=== PATIENT | female | born 1965 ===

== ENCOUNTER 2020-08-22 05:51 | Emergency (ER) | payer OTHER, SELFPAY ==
[2020-08-22 06:03] VITALS: BP 143/85; PULSE 79; RESP 18; TEMP 36.6; O2SAT 99; BMI 36.0
--- NOTE | 2020-08-22 07:52 | ED.ABDPAIN ---
HPI - Abdominal Pain General Chief Complaint: Abdominal Pain Stated Complaint: Abd pain Time Seen by Provider: 08/22/20 07:51 Source: patient Mode of arrival: ambulatory Limitations: no limitations History of Present Illness MD elicited complaint: abdominal pain Pertinent past history: diverticulitis Onset (ago): day(s) (10) Pain Consistency: constant Location: LLQ Severity: moderate Quality: stabbing Radiation: none Migration to: no migration Exacerbating factors: movement Relieving factors: nothing Context: history of similar episodes Associated symptoms: nausea and diarrhea Related Data Previous Rx's Medication Instructions Recorded hydrocodone-acetaminophen 1 tab PO Q6H PRN #15 tab 08/22/20 levofloxacin 500 mg PO DAILY 7 Days #7 tab 08/22/20 metronidazole [Flagyl] 500 mg PO BID 7 Days #14 tab 08/22/20 ondansetron 4 mg PO Q8H PRN #20 tab 08/22/20 Allergies Allergy/AdvReac Type Severity Reaction Status Date / Time No Known Allergies Allergy Unverified 05/04/20 14:59 Review of Systems Review of Systems Constitutional : No Weight loss, No Fever, No Chills ENT/Mouth : No sore throat, No Rhinorrhea Eyes: No Swelling, No Redness Cardiovascular : No Chest Pain, No SOB, NoEdema Respiratory : No Cough, No Sputum, No Wheezing Gastrointestinal : Positive Nausea, no Vomiting, positive Diarrhea, positive abdominal Pain, No Hematochezia, No Melena Genitourinary : No Dysuria, No Urinary Frequency, No Hematuria, No Urgency Musculoskeletal : No joint pain, No Myalgias, No Joint Swelling Skin : No Skin Lesions, No rash Neuro : No Weakness, No Numbness, No Dizziness, No Headache Psych : No Anxiety/Panic, No Depression Heme/Lymph: No Bruising, No Lymphadenopathy Endocrine : No Polyuria, No Polydipsia All other systems reviewed and are negative. Physical Exam Vital Signs: Vital Signs: Last Vital Signs Temp 97.8 F 08/22/20 06:03 Pulse 79 08/22/20 06:03 Resp 18 08/22/20 06:03 BP 143/85 H 08/22/20 06:03 Pulse Ox 99 08/22/20 06:03 Body Mass Index 36.0 Appearance: Alert. Oriented X3. No acute distress. Eyes: Pupils equal, round and reactive to light. ENT: Pharynx normal. Neck: Normal inspection. Neck supple. CVS: Normal heart rate and rhythm. Pulses normal. Respiratory: No respiratory distress. Breath sounds normal. Abdomen: Soft and mild LLQ ttp, no rebound or guarding Skin: Skin warm and dry. Normal skin color. Normal skin turgor. Extremities: No lower extremity edema. No calf ttp Neuro: Oriented X 3. No motor deficit. No sensory deficit. Course Course Course Narrative: aware of GB findings on CT scan but no RUQ pain neg Corbin's and no change in LFTs/bili and no WBC she can tolerate PO, she is not toxic, VS stable, will treat as outpatient MDM - Abdominal Pain MDM Narrative Medical decision making narrative: 55 yo female with hx of diverticulitis here with LLQ pain > 10 days ago about 1 month ago spoke to PCP on phone and started on PO flagyl, hx of IV antibiotics admit per her reports - at this time will need labs, CT scan for perforation/abscess, IVF, IV morphine for pain Lab Data Result diagrams: 08/22/20 08:17 08/22/20 08:17 Labs: Lab Results 08/22/20 08/22/20 08/22/20 Range/Units 08:17 08:17 08:17 WBC 9.6 (4.8-10.8) X10*3/uL RBC 3.82 L (4.20-5.50) X10*6/uL Hgb 12.0 (12.0-16.0) g/dl Hct 35.8 L (37-47) % MCV 93.7 (80-98) fL MCH 31.4 (27.0-33.0) pg MCHC 33.5 (31.0-35.0) g/dl RDW 12.3 (11.0-16.0) % Plt Count 296 (160-400) X10*3/uL MPV 10.0 (9.4-12.3) fL Immature Gran % (Auto) 0.2 (0.0-0.4) % Neut % (Auto) 72.8 (45-73) % Lymph % (Auto) 17.4 L (20-40) % [place] % (Auto) 7.8 (2-11) % Eos % (Auto) 1.6 (0-4) % Baso % (Auto) 0.2 (0-2) % Lymph # (Auto) 1.7 (1.2-4.9) X10*3/uL [place] # (Auto) 0.8 (0.1-1.2) X10*3/uL Eos # (Auto) 0.2 (0.0-0.4) X10*3/uL Baso # (Auto) 0.0 (0.0-0.2) X10*3/uL Abs Immat Gran (auto) 0.02 (0.00-0.03) X10*3/uL Absolute Neuts (auto) 7.0 (2.0-8.3) X10*3/uL Absolute Nucleated RBC 0.000 (0.0-0.012) X10*3/uL Nucleated RBC % (auto) 0.0 (0.0-0.2) /100WBC Hold Blue Top SEE NOTE Sodium 134 L (135-145) mmol/L Potassium 3.8 (3.3-5.1) mmol/l Chloride 102 (96-108) mmol/L Carbon Dioxide 26 (22-29) mmol/L Anion Gap 10 L (12-20) BUN 8 L (9-16) mg/dL Creatinine 0.74 (0.5-1.4) mg/dL Estim Creat Clear Calc 87.8 Estimated GFR > 60 Random Glucose 97 (60-115) mg/dL Calcium 8.5 (8.4-10.2) mg/dL Magnesium 2.0 (1.6-2.6) mg/dL Total Bilirubin 0.3 (0.0-1.0) mg/dL Direct Bilirubin 0.2 (0.0-0.5) mg/dL AST 12 (5-31) U/L ALT 14 (0-31) U/L Alkaline Phosphatase 64 (39-117) U/L Total Protein 7.1 (6.5-8.0) g/dL Albumin 4.0 (3.5-5.0) g/dL Lipase 16 (8-78) U/L Discharge Plan Discharge Clinical Impression: Diverticulitis Patient Disposition: Home, Self-Care Instructions: Diverticulitis (ED) Additional Instructions: return to ED for any worsening symptoms or concerns Prescriptions: New hydrocodone-acetaminophen 5-325 mg tablet 1 tab PO Q6H PRN (Reason: pain) Qty: 15 RF: 0 ondansetron 4 mg tablet,disintegrating 4 mg PO Q8H PRN (Reason: nausea and vomiting) Qty: 20 RF: 0 metronidazole [Flagyl] 500 mg tablet 500 mg PO BID 7 Days Qty: 14 RF: 0 levofloxacin 500 mg tablet 500 mg PO DAILY 7 Days Qty: 7 RF: 0 Referrals: Tonia Izaguirre STUDENT SU[employer] SERVICES DIRECTOR [Primary Care Provider] - 2 days (if not better) Print Language: [place] [facility] Past Medical History Attestation statement: The following information was validated with the patient. Medical History Acute diverticulitis Social History Social History Alcohol intake: never Smoking Status: Never smoker Use of substances other than those prescribed or required for medical reasons: No Advance Directives: No Advance Directives Information Provided: Yes
--- NOTE | 2020-08-22 07:59 | CT_ITS ---
EXAMINATION: CT ABDOMEN AND PELVIS WITH CONTRAST CLINICAL INFORMATION: Left lower quadrant pain COMPARISON: Abdominal ultrasound most recent June [address] of the abdomen and pelvis most recent August 1999 TECHNIQUE: Multidetector volumetric images were obtained from the superior aspect of the liver through the pubic symphysis following administration 85 mL of Omnipaque 350 intravenous contrast. Sagittal and coronal reformatted images were obtained on the technologist's workstation. Oral contrast: Yes This CT examination was performed using dose optimization techniques as appropriate, variously including the following: *Automated exposure control *Adjustment of mA and/or kV according to patient size (this includes techniques or standardized protocols for targeted exams where dose is matched to indication/reason for exam; i.e. extremities or head) *Use of iterative reconstruction technique DLP: 7 3 mGy-cm FINDINGS: LUNG BASES: There are small bilateral peripheral or subpleural pulmonary nodules lower lobes probably representing small subpleural lymph nodes. The lung bases are otherwise clear. LIVER, GALLBLADDER, AND BILIARY TREE: The liver is normal in size, shape, and attenuation. No focal hepatic lesion or biliary ductal dilatation is present. The gallbladder is normal in size. The gallbladder wall is upper normal in thickness measuring 3 mm. There is question of trace pericholecystic fluid.. No gallstones are appreciated by CT scan. PANCREAS: Unremarkable. SPLEEN: Unremarkable. ADRENAL GLANDS: Unremarkable. KIDNEYS AND URETERS: The kidneys are normal in size, shape, and attenuation. No hydronephrosis, hydroureter, or calculi seen. No perinephric stranding. BLADDER: Unremarkable. GASTROINTESTINAL TRACT: There is diverticulosis of the colon. There is wall thickening of the proximal sigmoid colon and stranding of the adjacent fat. Findings are suggestive of acute diverticulitis. No evidence of obstruction, perforation or abscess is seen. The Small and large bowel is otherwise unremarkable. The appendix is unremarkable. The stomach is unremarkable. ABDOMINAL WALL: No significant hernia is appreciated. There are postsurgical changes to the lower abdominal wall. It LYMPH NODES: Normal. VASCULAR: Unremarkable. PELVIC VISCERA: The left adnexa appears enlarged measuring approximately 4.3 x 6.3 x 6.5 cm in dimension. There are multiple clustered left adnexal cysts. Largest cyst measures approximately 3 cm. The right adnexa is unremarkable. There is a small low-attenuation lesion in the lower uterine segment/cervix probably representing nabothian cysts. There is a small amount of fluid in the pelvis. OSSEOUS STRUCTURES: There are degenerative changes of the spine. CT/CT abdomen pelvis w con IMPRESSION: Sigmoid diverticulitis. Upper normal thickness gallbladder wall and trace pericholecystic fluid. No gallstones are appreciated by CT scan. Appearance is questionable for cholecystitis. This could be better evaluated with ultrasound or HIDA scan if clinically indicated. Prominent left adnexa with multiple cysts, largest measuring 3 cm. This could be better evaluated with pelvic ultrasound. Small amount of fluid in the pelvis.
[2020-08-22] MEDS: 0.9 % Sodium Chloride 1,000 ML 999 ML IVCONT (08:22)
[2020-08-22] MEDS: Morphine Sulfate 4 MG/ML CARTRIDGE IVPUSH (08:22)
[2020-08-22] MEDS: ondansetron HCL 4 MG/2 ML VIAL IVPUSH (08:22)
[2020-08-22 08:24] LABS: Basophils Percent Auto 0.2 % (0-2); Eosinophils Absolute Auto 0.2 X10*3/uL (0.0-0.4); Eosinophils Percent Auto 1.6 % (0-4); Hematocrit 35.8 % (37-47); Imm Gran Abs Auto 0.02 X10*3/uL (0.00-0.03); Imm Gran Pct Auto 0.2 % (0.0-0.4); Lymphocytes Absolute Auto 1.7 X10*3/uL (1.2-4.9); Lymphocytes Percent Auto 17.4 % (20-40); MANUAL DIFF FLAG NO; Mean Corpuscular HGB Conc 33.5 g/dl (31.0-35.0); Mean Corpuscular Hemoglobin 31.4 pg (27.0-33.0); Mean Corpuscular Volume 93.7 fL (80-98); Monocytes Absolute Auto 0.8 X10*3/uL (0.1-1.2); Monocytes Percent Auto 7.8 % (2-11); Neutrophils Percent Auto 72.8 % (45-73); Platelet Count 296 X10*3/uL (160-400); Red Blood Count 3.82 X10*6/uL (4.20-5.50); Red Cell Distribution Width 12.3 % (11.0-16.0); White Blood Count 9.6 X10*3/uL (4.8-10.8)
[2020-08-22 08:50] LABS: Alanine Aminotransferase 14 U/L (0-31); Alkaline Phosphatase 64 U/L (39-117); Anion Gap 10 (12-20); Aspartate Amino Transferase 12 U/L (5-31); Bilirubin Direct 0.2 mg/dL (0.0-0.5); Bilirubin Total 0.3 mg/dL (0.0-1.0); Blood Urea Nitrogen 8 mg/dL (9-16); Calcium 8.5 mg/dL (8.4-10.2); Carbon Dioxide 26 mmol/L (22-29); Chloride 102 mmol/L (96-108); Creatinine Clr Calc Pharmacy 87.8; Estimated Glomerular Filt Rate > 60; Glucose Random 97 mg/dL (60-115); Lipase 16 U/L (8-78); Potassium 3.8 mmol/l (3.3-5.1); Sodium 134 mmol/L (135-145); Total Protein 7.1 g/dL (6.5-8.0)
[2020-08-22] MEDS: iohexoL 350 MG/ML 100 ML INFUS..BTL 85 ML IV (09:12)
[2020-08-22] MEDS: levoFLOXacin 500 MG TABLET PO (10:06)
[2020-08-22] MEDS: metroNIDAZOLE 500 MG TABLET PO (10:06)
== END 2020-08-22 10:11 | disposition home or self-care (01) ==
PROVIDERS: Emergency Provider Emergency Medicine; PCP Nurse Practitioner Family
DX: K57.32 Diverticulitis of large intestine without perforation or abscess without bleeding (principal)
CPT/HCPCS: 36415; 74177; 80048; 80076; 83690; 83735; 85025; 96361; 96374; 96375; 99284; J2270; J2405; Q9967

== ENCOUNTER 2020-09-21 13:07 | Outpatient (REF) | payer OTHER, SELFPAY | END 2020-09-21 13:08 | disposition home or self-care (01) | LOC: HO.LAB 13:07 | PROVIDERS: Visit Provider Internal Medicine | DX: Z20.822 Contact with and (suspected) exposure to COVID-19 (principal) | CPT/HCPCS: 36415; C9803; U0003; U0005 ==

== ENCOUNTER 2020-11-03 15:19 | Outpatient (REF) | payer OTHER, SELFPAY ==
[2020-11-03 18:41] LABS: TSH reflex Free T4 2.64 uIU/mL (0.32-4.0)
== END 2020-11-03 15:20 | disposition home or self-care (01) ==
LOC: HO.LAB 15:19
PROVIDERS: PCP Internal Medicine; Visit Provider Obstetrics & Gynecology
DX: N93.9 Abnormal uterine and vaginal bleeding, unspecified (principal); I10 Essential (primary) hypertension; Z88.5 Allergy status to narcotic agent
CPT/HCPCS: 36415; 84443

== ENCOUNTER 2020-11-09 16:12 | Outpatient (REF) | payer OTHER, SELFPAY ==
--- NOTE | ~2020-11-09 | US_ITS ---
EXAMINATION: US PELVIC COMPLETE CLINICAL INFORMATION: Abnormal uterine and vaginal bleeding. COMPARISON: None TECHNIQUE: Transabdominal and transvaginal imaging of pelvis is performed. FINDINGS: The uterus is anteverted and anteflexed measuring 9.1 cm in length, 3.9 cm in AP and 4.6 cm in transverse dimension. There is a small hypoechoic lesion in the anterior mid body of the uterus measuring 0.8 x 0.6 x 0.9 cm. Endometrial thickness is 1.1 cm. There are small anechoic nabothian cysts in the cervix. Right ovary measures 1.7 x 1.7 x 1.5 cm and volume 2.3 mL. Small dominant follicular cysts are seen. Left ovary measures 3.4 x 2.7 x 2.2 cm and volume 13.6 mL. There are 2 cysts seen. A 2.1 x 1.8 x 1.7 cyst with septation. An exophytic cyst measuring 1.5 x 1.5 x 1.9 cm. There is a left adnexal paraovarian cyst measuring 1.5 x 1.2 x 2.1 cm. No free fluid in cul-de-sac. US/US transvaginal IMPRESSION: Small uterine fibroid. There are small nabothian cysts in the cervix. Complex cyst with septation and exophytic simple cyst left ovary. In addition there is a left paraovarian cyst measuring 2.1 cm.
--- NOTE | ~2020-11-09 | US_ITS ---
EXAMINATION: US PELVIC COMPLETE CLINICAL INFORMATION: Abnormal uterine and vaginal bleeding. COMPARISON: None TECHNIQUE: Transabdominal and transvaginal imaging of pelvis is performed. FINDINGS: The uterus is anteverted and anteflexed measuring 9.1 cm in length, 3.9 cm in AP and 4.6 cm in transverse dimension. There is a small hypoechoic lesion in the anterior mid body of the uterus measuring 0.8 x 0.6 x 0.9 cm. Endometrial thickness is 1.1 cm. There are small anechoic nabothian cysts in the cervix. Right ovary measures 1.7 x 1.7 x 1.5 cm and volume 2.3 mL. Small dominant follicular cysts are seen. Left ovary measures 3.4 x 2.7 x 2.2 cm and volume 13.6 mL. There are 2 cysts seen. A 2.1 x 1.8 x 1.7 cyst with septation. An exophytic cyst measuring 1.5 x 1.5 x 1.9 cm. There is a left adnexal paraovarian cyst measuring 1.5 x 1.2 x 2.1 cm. No free fluid in cul-de-sac. US/US pelvic complete IMPRESSION: Small uterine fibroid. There are small nabothian cysts in the cervix. Complex cyst with septation and exophytic simple cyst left ovary. In addition there is a left paraovarian cyst measuring 2.1 cm.
== END 2020-11-09 16:13 | disposition home or self-care (01) ==
LOC: HO.US 16:12
PROVIDERS: PCP Internal Medicine; Visit Provider Obstetrics & Gynecology
DX: N93.9 Abnormal uterine and vaginal bleeding, unspecified (principal)
CPT/HCPCS: 76830; 76856

== ENCOUNTER 2020-11-17 09:34 | Outpatient (REF) | payer OTHER, SELFPAY ==
[2020-11-18 04:07] LABS: CT PCR NOT DETECTED (Not Detect.); NG PCR NOT DETECTED (Not Detect.)
[2020-11-18 05:32] LABS: CA-125 9 U/mL (<35)
[2020-11-22 02:31] LABS: HPV mRNA E6/E7 rflx Not Detected (Not Detected)
== END 2020-11-17 09:35 | disposition home or self-care (01) ==
LOC: HO.LAB 09:34
PROVIDERS: PCP Internal Medicine; Visit Provider Obstetrics & Gynecology
DX: Z12.4 Encounter for screening for malignant neoplasm of cervix (principal); Z11.3 Encounter for screening for infections with a predominantly sexual mode of transmission; Z11.51 Encounter for screening for human papillomavirus (HPV); N83.299 Other ovarian cyst, unspecified side; N93.9 Abnormal uterine and vaginal bleeding, unspecified
CPT/HCPCS: 36415; 58100; 86304; 87491; 87591; 87624; 88141; 88142; 88305

== ENCOUNTER → 2020-11-24 15:44 | Outpatient (BNVA) | payer OTHER, SELFPAY | PROVIDERS: PCP Internal Medicine; Visit Provider Obstetrics & Gynecology ==

== ENCOUNTER 2020-11-28 15:26 | Outpatient (REF) | payer OTHER, SELFPAY ==
--- NOTE | ~2020-11-28 | MM_ITS ---
EXAMINATION: MM SCREENING DIGITAL BREAST TOMOSYNTHESIS, BILATERAL CLINICAL INFORMATION: Screening. Asymptomatic. 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 The lifetime risk of breast cancer based on the Tyrer-Cuzick Model is 10%. COMPARISON: Mammography: 01/22/2017, 12/24/2016, 10/06/2015 TECHNIQUE: Digital breast tomosynthesis is performed in both the craniocaudal and mediolateral oblique views along with computer-aided detection (CAD). Synthesized 2D images are generated from the tomosynthesis. FINDINGS: There are scattered areas of fibroglandular density (ACR BI-RADS breast composition Category b). Breast tissue composition borders on heterogeneously dense. There is no interval mass or developing density. No architectural abnormality. Biopsy clip marker again noted right breast anterior upper outer quadrant. Again, there are scattered calcifications in both breasts. No significant changes. MM/MM tomosynthesis screening BI IMPRESSION: No significant changes from prior exams. ASSESSMENT: BI-RADS 2: Benign RECOMMENDATION: Routine annual mammography screening. This patient's information was entered into a reminder system with a target due date for their next mammogram.
== END 2020-11-28 15:27 | disposition home or self-care (01) ==
LOC: HO.MAMMO 15:26
PROVIDERS: PCP Internal Medicine; Visit Provider Internal Medicine
DX: Z12.31 Encounter for screening mammogram for malignant neoplasm of breast (principal)
CPT/HCPCS: 77063; 77067

== ENCOUNTER 2021-05-28 21:24 | Emergency (ER) | payer OTHER, SELFPAY ==
--- NOTE | ~2021-05-28 | CT_ITS ---
EXAMINATION: CT HEAD WITHOUT CONTRAST CLINICAL INFORMATION: Status post fall. COMPARISON: CT head dated from 01/28/2013. TECHNIQUE: Contiguous axial imaging was performed from the skull base to vertex without intravenous administration of contrast. This CT examination was performed using dose optimization techniques as appropriate, variously including the following: *Automated exposure control *Adjustment of mA and/or kV according to patient size (this includes techniques or standardized protocols for targeted exams where dose is matched to indication/reason for exam; i.e. extremities or head) *Use of iterative reconstruction technique DLP: 662 mGy-cm FINDINGS: There is no evidence of acute intracranial hemorrhage or territorial infarction. No abnormal mass effect or midline shift is seen. Donato to white matter differentiation is well preserved. No extra-axial fluid collections are identified. The ventricles are normal in size. There is no abnormal attenuation within the brain parenchyma. Small right occipital scalp hematoma. No acute osseous findings. The mastoid air cells and visualized portions of the paranasal sinuses are well aerated. CT/CT head/brain wo con IMPRESSION: Right occipital scalp hematoma without evidence of acute intracranial abnormalities.
[2021-05-28 21:33] VITALS: BP 144/81; PULSE 84; RESP 18; TEMP 36.8; O2SAT 98; BMI 34.9
--- NOTE | 2021-05-28 23:35 | ED.FALL ---
HPI - Fall General Chief Complaint: Fall Stated Complaint: Fall/Head inj Time Seen by Provider: 05/28/21 23:35 Source: patient Mode of arrival: ambulatory Limitations: no limitations History of Present Illness HPI Narrative: Patient fell backwards from ladder hit her head at the edge of stairs came with laceration and huge hematoma of the right occipital area no loss of conscious no seizures the patient behaving normal patient not on any anticoagulant Related Data Previous Rx's Medication Instructions Recorded hydrocodone 5 mg-acetaminophen 325 1 tab PO Q6H PRN #15 tab 08/22/20 mg tablet levofloxacin 500 mg tablet 500 mg PO DAILY 7 Days #7 tab 08/22/20 metronidazole 500 mg tablet 500 mg PO BID 7 Days #14 tab 08/22/20 (Flagyl) ondansetron 4 mg disintegrating 4 mg PO Q8H PRN #20 tab 08/22/20 tablet ibuprofen 600 mg tablet 600 mg PO Q6H PRN #20 tab 05/29/21 Allergies Allergy/AdvReac Type Severity Reaction Status Date / Time oxycodone AdvReac unknown Verified 11/24/20 15:58 Review of Systems Review of Systems: Yes all other systems are reviewed and are negative [facility] Past Medical History Medical History Acute diverticulitis Hypertension Social History Social History Alcohol intake: never Advance Directives: No Patient : No Gender identity: Female Physical Exam Vital Signs: Vital Signs: Last Vital Signs Temp 98.2 F 05/28/21 21:33 Pulse 89 05/29/21 00:03 Resp 16 05/29/21 00:03 BP 144/70 H 05/29/21 00:03 Pulse Ox 98 05/29/21 00:03 Body Mass Index 34.9 Const: General: comfortable Orientation/consciousness: patient oriented x3 HENMT: Head images: 1. 4 cm long superficial laceration Ears: hearing grossly normal bilaterally Face and sinus: Yes normal facial exam Eyes: General: appearance normal, both eyes and all related structures Neck: Neck: Yes full ROM, Yes supple and No tender Resp: Effort & Inspection: normal respiratory effort Auscultation: clear to auscultation bilaterally Cardio: Palpation: normal PMI Rate: regular rate Rhythm: regular rhythm Heart sounds: S1 normal heart sound present and S2 normal heart sound present GI: Inspection: Yes normal to inspection Palpation (GI): Soft to palpation : General: Yes no CVA tenderness Back/Spine/Pelvis: Back: no CVA tenderness Neuro: General: patient oriented x3, gait normal, moves all extremities and CN's II-XI intact bilaterally Procedures Laceration Laceration 1: Site: scalp Side (If applicable): right Size (cm): 4 Description: linear Depth: simple, single layer Skin layer closed with: other (#12 Lewis) Discharge Plan Discharge Clinical Impression: Closed head injury Qualifiers: Encounter type: initial encounter Qualified Code(s): S09.90XA - Unspecified injury of head, initial encounter Laceration of scalp Qualifiers: Encounter type: initial encounter Qualified Code(s): S01.01XA - Laceration without foreign body of scalp, initial encounter Patient Disposition: Home, Self-Care Instructions: Laceration (ED), Head Injury (ED) Additional Instructions: Apply ice Local care of lewis As advised staple removal in 7-10 days Ibuprofen for pain Prescriptions: New ibuprofen 600 mg tablet 600 mg PO Q6H PRN (Reason: pain) Qty: 20 RF: 0 No Action hydrocodone-acetaminophen 5-325 mg tablet 1 tab PO Q6H PRN (Reason: pain) Qty: 15 RF: 0 ondansetron 4 mg tablet,disintegrating 4 mg PO Q8H PRN (Reason: nausea and vomiting) Qty: 20 RF: 0 metronidazole [Flagyl] 500 mg tablet 500 mg PO BID 7 Days Qty: 14 RF: 0 levofloxacin 500 mg tablet 500 mg PO DAILY 7 Days Qty: 7 RF: 0 Stand Alone Forms: Work/School Release Interventions: ED Discharge Assessment Last Done: 05/29/21 01:07 Discharge Date/Time: 05/29/21 01:08
[2021-05-29 00:03] VITALS: BP 144/70; PULSE 89; RESP 16; O2SAT 98
[2021-05-29] MEDS: Ibuprofen 600 MG TABLET PO (00:58)
--- NOTE | 2021-05-29 00:59 | PC.NURSE ---
pt head lac lewis well aproximated. no complications. pt medicated for pain and then ready for discarge.
== END 2021-05-29 01:08 | disposition home or self-care (01) ==
PROVIDERS: Emergency Provider Internal Medicine; PCP Internal Medicine
DX: S01.01XA Laceration without foreign body of scalp, initial encounter (principal); I10 Essential (primary) hypertension; W11.XXXA Fall on and from ladder, initial encounter; Y93.9 Activity, unspecified; Y92.9 Unspecified place or not applicable; Y99.9 Unspecified external cause status
CPT/HCPCS: 12002; 70450; 99284

== ENCOUNTER 2021-06-05 09:00 | Emergency (ER) | payer OTHER, SELFPAY ==
[2021-06-05 09:46] VITALS: BP 174/81; PULSE 73; RESP 16; TEMP 36.1; O2SAT 99; BMI 34.9
--- NOTE | 2021-06-05 10:21 | ED_ITS ---
HPI - Wound/Laceration General Chief Complaint: Wound/Laceration Stated Complaint: staple removal Time Seen by Provider: 06/05/21 10:21 Source: patient Mode of arrival: ambulatory Limitations: no limitations History of Present Illness HPI narrative: 56-year-old female who hit the back of her head falling off a ladder 8 days ago. She had no loss of consciousness. Provider note of 05/28/21 states she had a large hematoma at that time, and 12 lewis were placed. Patient is not anticoagulated. Patient has not had any headache, vomiting, gait disturbance, or any other concussive symptoms since the initial laceration. Related Data Previous Rx's Medication Instructions Recorded hydrocodone 5 mg-acetaminophen 325 1 tab PO Q6H PRN #15 tab 08/22/20 mg tablet levofloxacin 500 mg tablet 500 mg PO DAILY 7 Days #7 tab 08/22/20 metronidazole 500 mg tablet 500 mg PO BID 7 Days #14 tab 08/22/20 (Flagyl) ondansetron 4 mg disintegrating 4 mg PO Q8H PRN #20 tab 08/22/20 tablet ibuprofen 600 mg tablet 600 mg PO Q6H PRN #20 tab 05/29/21 Allergies Allergy/AdvReac Type Severity Reaction Status Date / Time oxycodone AdvReac unknown Verified 11/24/20 15:58 Review of Systems Constitutional: Constitutional: Denies body ache(s), Denies chills, Denies fatigue, Denies fever(s), Denies headache(s), Denies malaise and Denies weakness Eyes: Eyes: Denies diplopia ENT: Denies vertigo, Denies dizziness, Denies otalgia, Denies headache(s), Denies mouth pain, Denies post nasal drip, Denies sinus pain, Denies sinus pressure, Denies sore throat and Denies throat swelling Cardiovascular: Cardiovascular: Denies chest pain, Denies syncope, Denies leg edema, Denies lightheadedness, Denies Loss of Consciousness, Denies palpitations and Denies dyspnea Respiratory: Respiratory: Denies chest congestion, Denies cough and Denies dyspnea Gastrointestinal: Gastrointestinal: Reports abdominal pain, Denies hematochezia, Denies constipation, Denies diarrhea and Denies vomiting Musculoskeletal: Musculoskeletal: Reports no additional musculoskeletal complaints Integumentary/Breasts: Comments: Total lewis to right-side of occiput Neurologic: Denies confusion, Denies vertigo, Denies dizziness, Denies syncop e, Denies headache(s) and Denies weakness Psychiatric: Psychiatric: Denies anxiety, Denies confusion and Denies depression Endocrine: Endocrine: Denies fatigue and Denies palpitations Allergic/Immunologic: Allergic/Immunologic: Denies throat swelling PMFSH Past Medical History Medical History Acute diverticulitis Hypertension Social History Social History Alcohol intake: never Advance Directives: No Advance Directives Information Provided: No Patient : No Gender identity: Female Physical Exam Vital Signs: Vital Signs: Last Vital Signs Temp 96.9 F 06/05/21 09:46 Pulse 73 06/05/21 09:46 Resp 16 06/05/21 09:46 BP 174/81 H 06/05/21 09:46 Pulse Ox 99 06/05/21 09:46 Body Mass Index 34.9 Const: General: No confusion Nutritional Appearance: well nourished Orientation/consciousness: No confusion Limitations: no limitations HENMT: Head: Yes normal to inspection, Yes normocephalic and Yes atraumatic Ears: hearing grossly normal bilaterally, external ears normal, TM's normal bilaterally and EAC's normal General nose exam: Normal external nose present Face and sinus: Yes normal facial exam and Yes sinuses nontender Mouth: Normal oral and palatal mucosa present Throat: Yes posterior oropharynx normal Eyes: Conjunctivae: conjunctivae normal Pupils: Equal, round and reactive pupils present EOM: EOMs intact bilaterally Neck: Neck: Yes full ROM, Yes no lymphadenopathy and Yes supple Resp: Effort & Inspection: normal respiratory effort and able to speak in complete sentences Auscultation: clear to auscultation bilaterally, no crackles, no rales, no rhonchi and no wheezes Cardio: Rate: regular rate Rhythm: regular rhythm Heart sounds: S1 normal heart sound present and S2 normal heart sound present GI: Inspection: Yes normal to inspection Palpation (GI): Soft to palpation, nontender, no guarding and not rigid Percussion: Yes normal to percussion Auscultation: normal bowel sounds Skin: Other: Or 12 lewis in nicely healing laceration over right side of patient's scalp. No redness, swelling, warmth. Neuro: General: No confusion Cranial nerves: Yes Equal, round and reactive pupils present Extrem: General: Yes normal to inspection and Yes full ROM Psych: Appearance: grossly normal Affect: normal affect Attitude: cooperative Thought process: Normal thought process present Course Course Course Narrative: Removed 12 lewis from patient's healing scalp laceration. Scalp laceration looks great, no redness swelling or warmth. Patient tolerated procedure well, no follow-up required Discharge Plan Discharge Clinical Impression: Removal of lewis Patient Disposition: Home, Self-Care Additional Instructions: You may wash your hair with shampoo. Your laceration looks very good, it is not infected. If redness, swelling, pain develops, please return to be seen. I do not think this will happen. Prescriptions: No Action hydrocodone-acetaminophen 5-325 mg tablet 1 tab PO Q6H PRN (Reason: pain) Qty: 15 RF: 0 ondansetron 4 mg tablet,disintegrating 4 mg PO Q8H PRN (Reason: nausea and vomiting) Qty: 20 RF: 0 metronidazole [Flagyl] 500 mg tablet 500 mg PO BID 7 Days Qty: 14 RF: 0 levofloxacin 500 mg tablet 500 mg PO DAILY 7 Days Qty: 7 RF: 0 ibuprofen 600 mg tablet 600 mg PO Q6H PRN (Reason: pain) Qty: 20 RF: 0 Stand Alone Forms: Work/School Release Interventions: ED Discharge Assessment Last Done: 06/05/21 10:50 Discharge Date/Time: 06/05/21 10:50
== END 2021-06-05 10:50 | disposition home or self-care (01) ==
PROVIDERS: Emergency Provider Emergency Medicine; PCP Internal Medicine
DX: S01.01XD Laceration without foreign body of scalp, subsequent encounter (principal); W11.XXXD Fall on and from ladder, subsequent encounter; I10 Essential (primary) hypertension
CPT/HCPCS: 99283

== ENCOUNTER 2022-05-22 16:34 | Outpatient (REF) | payer OTHER, SELFPAY ==
[2022-05-23 02:52] LABS: CT PCR NOT DETECTED (Not Detect.); NG PCR NOT DETECTED (Not Detect.)
[2022-05-23 13:27] LABS: BV Int Neg Control Negative (Negative); BV Int Pos Control Positive (Positive)
[2022-05-26 14:03] LABS: HPV mRNA E6/E7 rflx Not Detected (Not Detected)
== END 2022-05-22 16:35 | disposition home or self-care (01) ==
LOC: HO.LNP 16:34
PROVIDERS: Visit Provider Advanced Practice Midwife
DX: Z01.419 Encounter for gynecological examination (general) (routine) without abnormal findings (principal); Z11.51 Encounter for screening for human papillomavirus (HPV); R10.2 Pelvic and perineal pain; N95.0 Postmenopausal bleeding
CPT/HCPCS: 87480; 87491; 87510; 87591; 87624; 87660; 88142

== ENCOUNTER 2022-07-10 11:43 | Outpatient (REF) | payer OTHER, SELFPAY ==
--- NOTE | ~2022-07-10 | US_ITS ---
EXAMINATION: US PELVIS CLINICAL INFORMATION: Postmenopausal bleeding COMPARISON: Previous pelvic ultrasound most recent October 2020 TECHNIQUE: Ultrasound of the pelvis is performed using both transabdominal and transvaginal transducers along with Doppler. Transvaginal imaging is performed due to inadequate visualization transabdominally. FINDINGS: Exam is limited due to patient body habitus. The uterus appears anteverted and retroflexed and measures 7.3 x 4.2 x 5 cm in dimension. There is a 1 x 0.7 x 0.8 cm hypoechoic lesion in the right uterine body probably representing a small fibroid. The endometrium is abnormally thickened for a postmenopausal patient measuring 0.8 cm. There are nabothian cysts in the cervix. The right ovary is normal-appearing and measures 2.3 x 1.4 x 1.5 cm. Left ovary measures 3.1 x 2.4 x 1.8 cm. There are 2 left ovarian cysts measuring 1.7 x 1.7 x 1.3 cm and 1.2 x 1 x 1.3 cm. These are probably similar to previous exam. There is no fluid in the pelvis. US/US pelvic and transvaginal IMPRESSION: Limited exam. Abnormally thickened endometrium for a postmenopausal patient measuring 8 mm. 2 left ovarian cysts probably similar to previous exam.
[2022-07-10 14:38] LABS: Thyroid Stimulating Hormone 1.85 uIU/mL (0.32-4.0)
== END 2022-07-10 11:44 | disposition home or self-care (01) ==
LOC: HO.US 11:43
PROVIDERS: PCP Internal Medicine; Visit Provider Advanced Practice Midwife
DX: N95.0 Postmenopausal bleeding (principal)
CPT/HCPCS: 36415; 76830; 76856; 83001; 84443

== ENCOUNTER → 2022-08-13 11:42 | Outpatient (BNVA) | payer OTHER, SELFPAY | PROVIDERS: PCP Internal Medicine; Visit Provider Advanced Practice Midwife | DX: Z71.2 Person consulting for explanation of examination or test findings (principal); N95.0 Postmenopausal bleeding | CPT/HCPCS: 58100 ==

== ENCOUNTER 2022-11-25 16:46 | Outpatient (REF) | payer OTHER, SELFPAY ==
[2022-11-25 17:14] LABS: MANUAL DIFF FLAG NO
[2022-11-25 17:55] LABS: Basophils Percent Auto 0.5 % (0-2); Eosinophils Absolute Auto 0.2 X10*3/uL (0.0-0.4); Eosinophils Percent Auto 3.4 % (0-4); Hematocrit 37.8 % (37.0-47.0); Hemoglobin 12.8 g/dl (12.0-16.0); Imm Gran Abs Auto 0.01 X10*3/uL (0.00-0.03); Imm Gran Pct Auto 0.2 % (0.0-0.4); Lymphocytes Absolute Auto 1.9 X10*3/uL (1.2-4.9); Lymphocytes Percent Auto 28.5 % (20-40); Mean Corpuscular HGB Conc 33.9 g/dl (31.0-35.0); Mean Corpuscular Hemoglobin 31.4 pg (27.0-33.0); Mean Corpuscular Volume 92.9 fL (80.0-98.0); Mean Platelet Volume 10.5 fL (9.4-12.3); Monocytes Absolute Auto 0.6 X10*3/uL (0.1-1.2); Monocytes Percent Auto 9.8 % (2-11); Neutrophils Absolute Auto 3.8 x10*3/uL (2.0-8.3); Neutrophils Percent Auto 57.6 % (45-73); Platelet Count 303 X10*3/uL (160-400); Red Blood Count 4.07 X10*6/uL (4.20-5.50); Red Cell Distribution Width 12.6 % (11.0-16.0); White Blood Count 6.6 X10*3/uL (4.8-10.8)
[2022-11-25 18:07] LABS: Blood Urea Nitrogen 9 mg/dL (9-16); C Reactive Protein 9.45 mg/dL (< or = 0.50); Estimated Glomerular Filt Rate > 60
== END 2022-11-25 16:47 | disposition home or self-care (01) ==
LOC: HO.LAB 16:46
PROVIDERS: Absent Provider Internal Medicine; PCP Internal Medicine; Visit Provider Emergency Medicine
DX: R10.32 Left lower quadrant pain (principal); Z87.19 Personal history of other diseases of the digestive system
CPT/HCPCS: 36415; 82565; 84520; 85025; 86140

== ENCOUNTER 2022-11-27 06:30 | Outpatient (REF) | payer OTHER, SELFPAY ==
--- NOTE | ~2022-11-27 | CT_ITS ---
EXAMINATION: CT ABDOMEN AND PELVIS WITH CONTRAST CLINICAL INFORMATION: Left lower quadrant pain history of diverticulitis COMPARISON: August 22, 2020 TECHNIQUE: Multidetector volumetric images were obtained from the superior aspect of the liver through the pubic symphysis following administration 85 mL of Omnipaque 350 intravenous contrast. Sagittal and coronal reformatted images were obtained on the technologist's workstation. Oral contrast: No This CT examination was performed using dose optimization techniques as appropriate, variously including the following: *Automated exposure control *Adjustment of mA and/or kV according to patient size (this includes techniques or standardized protocols for targeted exams where dose is matched to indication/reason for exam; i.e. extremities or head) *Use of iterative reconstruction technique DLP: 506 mGy-cm FINDINGS: LUNG BASES: The visualized lung bases are unremarkable. No pleural or pericardial effusion. LIVER, GALLBLADDER, AND BILIARY TREE: The liver is enlarged measuring approximately 21 cm in vertical length. There also appears to be some diminished density of liver parenchyma consistent with fatty infiltration. No focal hepatic lesion or biliary ductal dilatation is present. The gallbladder is unremarkable with no evidence of radiopaque gallstones, gallbladder wall thickening, or obvious pericholecystic inflammatory changes. PANCREAS: Unremarkable. No abnormal mass or peripancreatic inflammatory change. SPLEEN: Unremarkable. ADRENAL GLANDS: Unremarkable. KIDNEYS AND URETERS: The kidneys are normal in size, shape, and attenuation. No hydronephrosis, hydroureter, or calculi seen. No perinephric stranding. BLADDER: Decompressed GASTROINTESTINAL TRACT: No dilated loops of large or small bowel are evident. No free air or free fluid is seen. There is some bowel wall thickening and diverticulosis present within the sigmoid colon as well as some pericolonic fat stranding without definite abscess formation. Above finding consistent with acute diverticulitis. The appendix is visualized and appears unremarkable. ABDOMINAL WALL: No significant hernia is appreciated. LYMPH NODES: No lymphadenopathy appreciated. VASCULAR: Unremarkable. PELVIC VISCERA: Unremarkable. OSSEOUS STRUCTURES: Unremarkable. CT/CT abdomen pelvis w IV con IMPRESSION: Acute sigmoid diverticulitis without drainable abscess. Fleischner guidelines were followed.
[2022-11-27] MEDS: iohexoL 350 MG/ML 100 ML INFUS..BTL 85 ML IV (09:37)
[2022-11-27] MEDS: Barium Sulfate Oral (Vanilla) 450 ML ORAL.SUSP 900 ML PO (09:38)
== END 2022-11-27 06:31 | disposition home or self-care (01) ==
LOC: HO.CT 06:30
PROVIDERS: PCP Emergency Medicine; Visit Provider Emergency Medicine
DX: R10.32 Left lower quadrant pain (principal); Z87.19 Personal history of other diseases of the digestive system
CPT/HCPCS: 74177; Q9967

== ENCOUNTER 2022-12-29 19:52 | Emergency (ER) | payer OTHER, SELFPAY ==
--- NOTE | ~2022-12-29 | XR_ITS ---
EXAMINATION: XR CHEST CLINICAL INFORMATION: Shortness of breath COMPARISON: None available. TECHNIQUE: Frontal view of the chest was obtained. FINDINGS: Normal symmetric lung volumes. No parenchymal consolidation. No pleural effusion. No pneumothorax. Cardiomediastinal silhouette and pulmonary vascularity are within normal limits. No acute osseous abnormalities. XR/XR chest 1V IMPRESSION: No acute findings.
--- NOTE | ~2022-12-29 | CT_ITS ---
EXAMINATION: CT ANGIOGRAM OF THE CHEST WITH AND WITHOUT CONTRAST (CT PULMONARY ANGIOGRAM FOR PE) CLINICAL INFORMATION: Reason for Exam acute sob COMPARISON: Chest x-ray from the same day TECHNIQUE: Prior to contrast administration, noncontrast localization images were obtained. Subsequently, multidetector volumetric imaging was performed from the thoracic inlet to below the diaphragms following the administration of 80 mL Omnipaque 350 intravenous contrast. No contrast reaction reported Sagittal, coronal, and MIP oblique sagittal reformatted images were obtained on the CT workstation, uploaded to PACS, and reviewed. This CT examination was performed using dose optimization techniques as appropriate, variously including the following: *Automated exposure control *Adjustment of mA and/or kV according to patient size (this includes techniques or standardized protocols for targeted exams where dose is matched to indication/reason for exam; i.e. extremities or head) *Use of iterative reconstruction technique Total exam dose-length product 334 mGy-cm FINDINGS: QUALITY OF STUDY/CONTRAST BOLUS: Satisfactory. PULMONARY ARTERIES: No pulmonary emboli. THORACIC AORTA: No aneurysm. LUNG: There is focal curvilinear opacity adjacent to a focus of pericardial fat in the anterior left upper lobe as seen on image 212/501. No additional focal consolidation is seen bilaterally. PLEURA: No pleural effusion or pneumothorax. MEDIASTINUM: The visualized thyroid gland is unremarkable. There are subcentimeter mediastinal lymph nodes within the range of normal variation. Cardiac size is within normal limits; no pericardial effusion. CORONARY ARTERY CALCIFICATION: None visualized on this study. CHEST WALL/AXILLA: No axillary or internal mammary lymphadenopathy. OSSEOUS STRUCTURES: Multilevel endplate osteophytes noted in the spine. UPPER ABDOMEN: Unremarkable. No reflux of contrast into the hepatic veins to suggest elevated right heart pressures. CT/CT angio chest PE protocol IMPRESSION: 1. No pulmonary embolus identified. 2. Focal curvilinear opacity in the anterior left upper lobe, favoring atelectasis and less likely an irregularly-shaped nodule. However, without prior studies for comparison, follow-up CT in 3-6 months would be helpful to assess stability. VTE: negative.
[2022-12-29 20:12] VITALS: BP 144/85; PULSE 108; RESP 22; TEMP 36.8; O2SAT 99; BMI 34.8
--- NOTE | 2022-12-29 20:43 | ED.GENADULT ---
HPI - General Adult General Chief complaint: Dyspnea Stated complaint: sob/n Time Seen by Provider: 12/29/22 20:31 Source: patient Mode of arrival: ambulatory Limitations: no limitations History of Present Illness HPI narrative: Patient with History of diverticulitis treated with antibiotics on 11/27/2022 comes in with sudden onset of shortness of breath at 14:00 with nausea resolved and came back again just prior to arrival patient does have slight anxiety but does not feel very anxious never had similar episode in the past felt nauseated no vomiting no diarrhea no blood in the stool no significant abdominal pain no fever or chills Related Data Home Medications Medication Instructions Recorded Confirmed lisinopril 10 mg tablet 10 mg PO DAILY 05/22/22 Previous Rx's Medication Instructions Recorded ibuprofen 600 mg tablet 600 mg PO Q6H PRN pain #20 tabs 05/29/21 Allergies Allergy/AdvReac Type Severity Reaction Status Date / Time oxycodone AdvReac unknown Verified 08/13/22 12:16 Review of Systems Review of Systems: Yes all other systems are reviewed and are negative PMFSH Past Medical History Medical History Acute diverticulitis History of abnormal cervical Papanicolaou smear Hypertension Surgical History Hx of section Family History Family History Family/Other History of breast cancer Paternal Aunt Brain cancer Father Prostate cancer Family/Other Colon cancer Social History Social History Alcohol intake: never Patient Tobacco Use Status: Never used Tobacco Smoked in Last 30 Days: No Use of substances other than those prescribed or required for medical reasons: No Advance Directives: No Advance Directives Information Provided: Yes Gender identity: Female Physical Exam ED Vital Signs: Vital Signs - 24 hr 12/29/22 20:12 12/29/22 21:12 12/29/22 22:21 Temperature 98.3 F 98.1 F 98.4 F Pulse Rate 108 H 102 H 98 Respiratory Rate 22 H 18 16 Blood Pressure 144/85 H 148/82 H 121/68 Pulse Oximetry 99 99 98 Oxygen Delivery Method Room Air Room Air Room Air BMI result Body Mass Index 34.8 Appearance: Alert. Oriented X3. No acute distress. Anxious Eyes: PERRLA, No Nystagmus ENT: Pharynx normal. Oral Mucosa moist Neck: Normal inspection. Neck supple. CVS: Normal heart rate and rhythm. Pulses normal. Respiratory: No respiratory distress. Equal air entry bilateral, no wheezing/rales/rhonchi Abdomen: Soft and nontender. Bowel sounds are present, no mass palpable, no CVA tenderness Skin: Skin warm and dry. Normal skin color. Normal skin turgor. Extremities: No lower extremity edema. No calf tenderness Neuro: Oriented X 3. No motor deficit. Medications Administered Discontinued Medications Generic Name Dose Route Start Last Admin Trade Name Freq PRN Reason Stop Dose Admin Sodium Chloride 1,000 mls @ 999 mls/hr 12/29/22 20:48 12/29/22 22:15 Ns IV 12/29/22 21:48 Infused .Q1H1M ONE Infusion Iohexol 100 ml 12/29/22 22:42 12/29/22 22:42 Iohexol 350 Mg/Ml 100 Ml Infus..Btl IV 12/29/22 22:43 85 ml ONCE ONE Administration Medical Decision Making Medical Decision Making [facility] Narrative: Patient on specific complaints negative troponin negative EKG changes CTA negative for PE patient seems to be anxious when she arrived likely the anxiety as a cause of shortness of breath and discomfort patient feels better at this time discharge patient home Lab Data [facility] Lab Attestation statement: I reviewed the patient's lab results. 12/29/22 20:54 12/29/22 20:54 Labs: Lab Results 12/29/22 12/29/22 12/29/22 Range/Units 20:54 20:54 20:54 WBC 8.8 (4.8-10.8) X10*3/uL RBC 4.13 L (4.20-5.50) X10*6/uL Hgb 12.9 (12.0-16.0) g/dl Hct 37.8 (37.0-47.0) % MCV 91.5 (80.0-98.0) fL MCH 31.2 (27.0-33.0) pg MCHC 34.1 (31.0-35.0) g/dl RDW 12.4 (11.0-16.0) % Plt Count 256 (160-400) X10*3/uL MPV 10.1 (9.4-12.3) fL Immature Gran % (Auto) 0.3 (0.0-0.4) % Neut % (Auto) 77.7 H (45-73) % Lymph % (Auto) 13.4 L (20-40) % [place] % (Auto) 7.4 (2-11) % Eos % (Auto) 1.0 (0-4) % Baso % (Auto) 0.2 (0-2) % Lymph # (Auto) 1.2 (1.2-4.9) X10*3/uL [place] # (Auto) 0.7 (0.1-1.2) X10*3/uL Eos # (Auto) 0.1 (0.0-0.4) X10*3/uL Baso # (Auto) 0.0 (0.0-0.2) X10*3/uL Abs Immat Gran (auto) 0.03 (0.00-0.03) X10*3/uL Absolute Neuts (auto) 6.8 (2.0-8.3) x10*3/uL Absolute Nucleated RBC 0.000 (0.0-0.012) X10*3/uL Nucleated RBC % (auto) 0.0 (0.0-0.2) /100WBC D-Dimer High Sensitivty NG/ML Sodium 140 (135-145) mmol/L Potassium 3.8 (3.3-5.1) mmol/L Chloride 106 (96-108) mmol/L Carbon Dioxide 25 (22-29) mmol/L Anion Gap 13 (12-20) BUN 9 (9-16) mg/dL Creatinine 0.78 (0.5-1.4) mg/dL Estim Creat Clear Calc 79.8 Estimated GFR > 60 Random Glucose 126 H (60-115) mg/dL Lactic Acid 1.0 (0.5-2.0) mmol/L Calcium 9.4 D (8.4-10.2) mg/dL Total Bilirubin 0.4 (0.0-1.0) mg/dL Direct Bilirubin 0.1 (0.0-0.5) mg/dL AST 17 (5-31) U/L ALT 15 (0-31) U/L Alkaline Phosphatase 80 (39-117) U/L Troponin I High Sens (<3.5-17.0) ng/L Total Protein 7.6 (6.5-8.0) g/dL Albumin 4.4 (3.5-5.0) g/dL Lipase 17 (8-78) U/L Urine Color Urine Appearance Urine pH (5.0-9.0) Ur Specific Alpine (1.005-1.025) Urine Protein (Neg-Trace) mg/dL Urine Glucose (UA) (Negative) mg/dL Urine Ketones (Negative) mg/dL Urine Blood (Negative) Urine Nitrite (Negative) Ur Leukocyte Esterase (Negative) 12/29/22 12/29/22 12/29/22 Range/Units 21:02 21:06 22:26 WBC (4.8-10.8) X10*3/uL RBC (4.20-5.50) X10*6/uL Hgb (12.0-16.0) g/dl Hct (37.0-47.0) % MCV (80.0-98.0) fL MCH (27.0-33.0) pg MCHC (31.0-35.0) g/dl RDW (11.0-16.0) % Plt Count (160-400) X10*3/uL MPV (9.4-12.3) fL Immature Gran % (Auto) (0.0-0.4) % Neut % (Auto) (45-73) % Lymph % (Auto) (20-40) % [place]enden % (Auto) (2-11) % Eos % (Auto) (0-4) % Baso % (Auto) (0-2) % Lymph # (Auto) (1.2-4.9) X10*3/uL [place] # (Auto) (0.1-1.2) X10*3/uL Eos # (Auto) (0.0-0.4) X10*3/uL Baso # (Auto) (0.0-0.2) X10*3/uL Abs Immat Gran (auto) (0.00-0.03) X10*3/uL Absolute Neuts (auto) (2.0-8.3) x10*3/uL Absolute Nucleated RBC (0.0-0.012) X10*3/uL Nucleated RBC % (auto) (0.0-0.2) /100WBC D-Dimer High Sensitivty 353 NG/ML Sodium (135-145) mmol/L Potassium (3.3-5.1) mmol/L Chloride (96-108) mmol/L Carbon Dioxide (22-29) mmol/L Anion Gap (12-20) BUN (9-16) mg/dL Creatinine (0.5-1.4) mg/dL Estim Creat Clear Calc Estimated GFR Random Glucose (60-115) mg/dL Lactic Acid (0.5-2.0) mmol/L Calcium (8.4-10.2) mg/dL Total Bilirubin (0.0-1.0) mg/dL Direct Bilirubin (0.0-0.5) mg/dL AST (5-31) U/L ALT (0-31) U/L Alkaline Phosphatase (39-117) U/L Troponin I High Sens < 2.7 (<3.5-17.0) ng/L Total Protein (6.5-8.0) g/dL Albumin (3.5-5.0) g/dL Lipase (8-78) U/L Urine Color Yellow Urine Appearance Clear Urine pH 7.0 (5.0-9.0) Ur Specific Alpine <= 1.005 (1.005-1.025) Urine Protein Negative (Neg-Trace) mg/dL Urine Glucose (UA) Negative (Negative) mg/dL Urine Ketones Negative (Negative) mg/dL Urine Blood Negative (Negative) Urine Nitrite Negative (Negative) Ur Leukocyte Esterase Negative (Negative) Independent Interpretation I performed an independent interpretation of an: EKG Interpretation: Normal sinus rhythm heart rate 97 beats per minute normal intervals normal axis no acute ST-T no acute ischemia Discharge Plan Discharge Clinical Impression: Anxiety Patient Disposition: Home, Self-Care Instructions: Anxiety (ED) Additional Instructions: Your symptoms likely from anxiety CT scan of the chest negative for blood clot and there is is no findings of heart attack Rest at home and follow with PCP Es probable que eli s?ntomas se deban a la ansiedad. Tomograf?a computarizada del t?rax negativa para co?gulo de nanette y no hay hallazgos de ataque card?aco Descansar en casa y seguir con PCP Prescriptions: No Action ibuprofen 600 mg tablet 600 mg PO Q6H PRN (Reason: pain) Qty: 20 0RF lisinopril 10 mg tablet 10 mg PO DAILY Interventions: ED Discharge Assessment Last Done: 12/29/22 23:33 Discharge Date/Time: 12/29/22 23:43 Print Language: Croatian
--- NOTE | 2022-12-29 20:56 | ECG_ITS ---
Test Reason : SOB Blood Pressure : / mmHG Vent. Rate : 097 BPM Atrial Rate : 097 BPM P-R Int : 168 ms QRS Dur : 092 ms QT Int : 344 ms P-R-T Axes : 056 001 007 degrees QTc Int : 436 ms Normal sinus rhythm Right atrial enlargement Borderline ECG When compared with ECG of 17-FEB-2020 11:33, Nonspecific T wave abnormality now evident in Anterior leads Referred By: Virgilio Leach Electronically Signed By:Manjeet Mcclelland
[2022-12-29] MEDS: 0.9 % Sodium Chloride 1,000 ML 999 ML IV (21:10)
[2022-12-29 21:11] LABS: MANUAL DIFF FLAG NO
[2022-12-29 21:12] VITALS: BP 148/82; PULSE 102; RESP 18; TEMP 36.7; O2SAT 99
[2022-12-29 21:13] LABS: Basophils Percent Auto 0.2 % (0-2); Eosinophils Absolute Auto 0.1 X10*3/uL (0.0-0.4); Hematocrit 37.8 % (37.0-47.0); Hemoglobin 12.9 g/dl (12.0-16.0); Imm Gran Abs Auto 0.03 X10*3/uL (0.00-0.03); Imm Gran Pct Auto 0.3 % (0.0-0.4); Lymphocytes Absolute Auto 1.2 X10*3/uL (1.2-4.9); Lymphocytes Percent Auto 13.4 % (20-40); Mean Corpuscular HGB Conc 34.1 g/dl (31.0-35.0); Mean Corpuscular Hemoglobin 31.2 pg (27.0-33.0); Mean Corpuscular Volume 91.5 fL (80.0-98.0); Mean Platelet Volume 10.1 fL (9.4-12.3); Monocytes Absolute Auto 0.7 X10*3/uL (0.1-1.2); Monocytes Percent Auto 7.4 % (2-11); Neutrophils Absolute Auto 6.8 x10*3/uL (2.0-8.3); Neutrophils Percent Auto 77.7 % (45-73); Platelet Count 256 X10*3/uL (160-400); Red Blood Count 4.13 X10*6/uL (4.20-5.50); Red Cell Distribution Width 12.4 % (11.0-16.0); White Blood Count 8.8 X10*3/uL (4.8-10.8)
[2022-12-29 21:19] LABS: D Dimer High Sensitivity 353 NG/ML
[2022-12-29 21:30] LABS: Alanine Aminotransferase 15 U/L (0-31); Albumin Level 4.4 g/dL (3.5-5.0); Alkaline Phosphatase 80 U/L (39-117); Anion Gap 13 (12-20); Aspartate Amino Transferase 17 U/L (5-31); Bilirubin Direct 0.1 mg/dL (0.0-0.5); Bilirubin Total 0.4 mg/dL (0.0-1.0); Blood Urea Nitrogen 9 mg/dL (9-16); Calcium 9.4 mg/dL (8.4-10.2); Carbon Dioxide 25 mmol/L (22-29); Chloride 106 mmol/L (96-108); Creatinine Clr Calc Pharmacy 79.8; Estimated Glomerular Filt Rate > 60; Glucose Random 126 mg/dL (60-115); Lipase 17 U/L (8-78); Potassium 3.8 mmol/L (3.3-5.1); Sodium 140 mmol/L (135-145); Total Protein 7.6 g/dL (6.5-8.0)
[2022-12-29 21:39] LABS: Troponin-I High Sensitivity < 2.7 ng/L (<3.5-17.0)
[2022-12-29 22:21] VITALS: BP 121/68; PULSE 98; RESP 16; TEMP 36.9; O2SAT 98
[2022-12-29 22:39] LABS: Appearance Urine Clear; Color Urine Yellow; Glucose Urine UA Negative (Negative); Leukocyte Esterase Urine Negative (Negative); Nitrite Urine Negative (Negative); Specific Gravity - Urine <= 1.005 (1.005-1.025); Urine Blood Negative (Negative); Urine Ketones Negative (Negative); Urine Protein Negative (Neg-Trace)
[2022-12-29] MEDS: iohexoL 350 MG/ML 100 ML INFUS..BTL IV (22:42)
== END 2022-12-29 23:43 | disposition home or self-care (01) ==
PROVIDERS: Emergency Provider Internal Medicine; PCP Internal Medicine
DX: R06.02 Shortness of breath (principal); F41.1 Generalized anxiety disorder; F43.0 Acute stress reaction; Z79.899 Other long term (current) drug therapy
CPT/HCPCS: 36415; 71045; 71275; 80048; 80076; 81003; 83605; 83690; 84484; 85025; 85379; 93005; 99284; 99285; Q9967

== ENCOUNTER 2022-12-30 15:17 | Outpatient (REF) | payer OTHER, SELFPAY ==
--- NOTE | ~2022-12-30 | MM_ITS ---
EXAMINATION: MM SCREENING DIGITAL BREAST TOMOSYNTHESIS, BILATERAL CLINICAL INFORMATION: Screening. Asymptomatic. 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 The lifetime risk of breast cancer based on the Tyrer-Cuzick Model is 10%. COMPARISON: Mammography: 11/28/2020, 01/22/2017, 12/24/2016; ultrasound right 08/19/2017 TECHNIQUE: Digital breast tomosynthesis is performed in both the craniocaudal and mediolateral oblique views along with computer-aided detection (CAD). Synthesized 2D images are generated from the tomosynthesis. FINDINGS: There are scattered areas of fibroglandular density (ACR BI-RADS breast composition Category b). There are no significant masses, abnormal calcifications, or other abnormalities. No architectural abnormality or developing density or significant change from prior studies. There is biopsy clip marker again seen anterior upper outer right breast. There are scattered bilateral punctate calcifications similar to prior exam. The axilla are unremarkable. There are no significant changes. MM/MM tomosynthesis screening BI IMPRESSION: No mammographic evidence of malignancy. ASSESSMENT: BI-RADS 2: Benign RECOMMENDATION: Routine annual mammography screening. This patient's information was entered into a reminder system with a target due date for their next mammogram.
== END 2022-12-30 15:18 | disposition home or self-care (01) ==
LOC: HO.MAMMO 15:17
PROVIDERS: PCP Internal Medicine; Visit Provider Internal Medicine
DX: Z12.31 Encounter for screening mammogram for malignant neoplasm of breast (principal)
CPT/HCPCS: 77063; 77067

== ENCOUNTER 2023-08-06 19:29 | Outpatient (REF) | payer OTHER, SELFPAY | END 2023-08-06 19:30 | disposition home or self-care (01) | LOC: HO.HHCLNP 19:29 | PROVIDERS: Visit Provider Emergency Medicine | DX: J10.1 Influenza due to other identified influenza virus with other respiratory manifestations (principal) | CPT/HCPCS: 87070 ==

== ENCOUNTER 2023-11-17 10:33 | Outpatient (AMB) | payer OTHER, SELFPAY ==
--- NOTE | 2023-11-17 10:44 | A.OFFVIS_ITS ---
Intake Vital Signs 11/17/23 10:46 Height 5 ft 1 in Weight 197 lb BMI 37.2 BP 144/91 H Blood Pressure Location Lt brachial Position Sitting Pulse 78 Intake Visit Reasons: Colonoscopy Screening Intake Note: Patient new consult for 1st pre colonoscopy screening. Patient denies any GI issues. 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[facility] [place] Accompanied by: Self / Same As Patient Allergies oxycodone Adverse Reaction (Verified 11/17/23 10:44) unknown HPI HPI Comments History of Present Illness Details A 58 y/o female referred for screening colonoscopy- she has a hx of several episodes diverticulitis- she has never had a colonoscopy- She has random- abdominal pain- LLQ pain- none currently- last episode 11/2022- tx'd antibx Normal bowel pattern Appetite is good No cardiac or respiratory issues No N/V/D/ abdominal pain- fever or chills PFSH Medical History Acute diverticulitis History of abnormal cervical Papanicolaou smear Hypertension Surgical History Hx of section Family History Family/Other History of breast cancer Paternal Aunt Brain cancer Father Prostate cancer Family/Other Colon cancer Social History Alcohol intake: never Patient Tobacco Use Status: Never used Tobacco Gender identity: Female Review of Systems Const All systems reviewed & are unremarkable except as noted in HPI and below Card Denies chest pain and Denies dyspnea Resp Denies dyspnea GI Denies abdominal pain, Denies nausea and Denies vomiting Physical Exam Vital Signs: Last Vital Signs Pulse 78 11/17/23 10:46 BP 144/91 H 11/17/23 10:46 BMI result Body Mass Index 37.2 Const General: cooperative, healthy appearing, comfortable, anxious and well groomed Orientation/consciousness: patient oriented x3 Limitations: language barrier Eyes Sclerae: sclerae normal Resp Effort & Inspection: normal respiratory effort and able to speak in complete sentences Auscultation: clear to auscultation bilaterally, no rhonchi and no wheezes Cardio Rate: regular rate Rhythm: regular rhythm Heart sounds: S1 normal heart sound present and S2 normal heart sound present GI Palpation (GI): Soft to palpation and nontender Auscultation: normal bowel sounds Skin General skin exam: no rashes or lesions noted Neuro General: patient oriented x3 Extrem General: Yes full ROM Psych Appearance: grossly normal and well kempt Mental Status: mental status grossly normal Speech and movement: Normal speech and movement present Affect: normal affect Attitude: cooperative Thought process: Normal thought process present Thought content: Normal thought content present Insight: Good insight present (Psych) Judgement: Good judgement present (Psych) Results Reviewed Results Reviewed: CT/CT abdomen pelvis w IV con IMPRESSION: Acute sigmoid diverticulitis without drainable abscess. Assessment & Plan Assessment & Plan (1) History of diverticulitis: Comment: Several episodes CT documented never had screening colonoscopy Discussed procedure, rare risks, need for escorted due to anesthesia Code(s): Z87.19 - Personal history of other diseases of the digestive system Plan: several episodes-last 11/2022-CT documented colonoscopy ER protocol (2) Constipation: Code(s): K59.00 - Constipation, unspecified Plan: HFD- (3) Encounter for screening colonoscopy: Code(s): Z12.11 - Encounter for screening for malignant neoplasm of colon Plan: Index screening colonoscopy Plan Index screening colonoscopy HFD Divertic/ itis ER protocol Orders: Orders Colonoscopy - GI Use Only Today K59.00 - Constipation, unspecified, Z87.19 - Personal history of other diseases of the digestive system Medications: New polyethylene glycol 3350 (Miralax) Take as directed by mouth the day before your procedure. 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
[2023-11-17 10:46] VITALS: BP 144/91; PULSE 78; BMI 37.2
== END 2023-11-17 11:49 | disposition home or self-care (01) ==
PROVIDERS: PCP Internal Medicine; Visit Provider Physician Assistant
DX: Z87.19 Personal history of other diseases of the digestive system (principal); K59.00 Constipation, unspecified; Z12.11 Encounter for screening for malignant neoplasm of colon
CPT/HCPCS: 99203

== ENCOUNTER → 2023-11-17 10:33 | Outpatient (BNVA) | payer OTHER, SELFPAY | PROVIDERS: PCP Internal Medicine; Visit Provider Physician Assistant ==

== ENCOUNTER 2024-04-12 14:16 | Day surgery (SDC) | payer BC, SELFPAY ==
[2024-04-12 13:53] VITALS: BMI 37.5
[2024-04-12 14:19] VITALS: BP 156/62; PULSE 86; RESP 18; TEMP 36.9; O2SAT 97; BMI 38.0
[2024-04-12] MEDS: Lactated Ringers 1,000 ML 50 ML IVCONT (14:45)
--- NOTE | 2024-04-12 14:57 | MHC.SHP ---
Pre-Procedural Eval Section A - 24 Hr Update-Section A only Date of Service: 04/12/24 The patient is an INPATIENT: No The patient has been examined within 24 hours of the surgical procedure. The History & Physical has been completed within 30 days and I have reviewed it.: No Section B - Complete if H&P > 30 days Chief Complaint: Screening, history of diverticulitis Relevant Family History (Specify if Yes): Yes Relevant Social History: None Present Medications: see Short Stay Collaborative assessment Medical History: Significant History (Acute diverticulitis History of abnormal cervical Papanicolaou smear Hypertension) History of Previous Operations: Relevant previous surgery/procedure and date(s) (History of section) Allergies: Allergies Allergy/AdvReac Type Severity Reaction Status Date / Time oxycodone AdvReac Nausea and Verified 04/12/24 14:32 Vomiting Review of Systems Sugical H&P ROS: Negative: Constitution, Cardiovascular, Respiratory and Gastrointestinal Exam Surgical H&P Exam: Normal: Heart, Normal: Lungs, Normal: Extremities and Normal: Abdomen Plan Diagnosis/Plan: Unchanged I have reviewed the history and physical and performed a pertinent physical examination on my patient. No changes have occurred unless specified. Time Spent With Patient Time: Total time managing care of this patient today ____ minutes.
--- NOTE | 2024-04-12 18:10 | P.CONAN_ITS ---
HPI - Anesthesia Eval Consult details Narrative: screening [facility] Active Problems Active Problems: All Active Problems Encounter for screening colonoscopy (Acute) History of diverticulitis (Acute) Constipation (Acute) History of abnormal cervical Papanicolaou smear (Acute) Past Medical History Medical History (Updated 11/17/23 @ 13:43 by Tonia Morales PA-C) History of abnormal cervical Papanicolaou smear Hypertension Acute diverticulitis Family History Family History Family/Other History of breast cancer Paternal Aunt Brain cancer Father Prostate cancer Family/Other Colon cancer Family history of problems with anesthesia: No Surgical History Surgical History (Updated 04/12/24 @ 14:32 by Marika Garcia RN) Hx of tubal ligation Hx of section History of Problems with Anesthesia: No Social History Social History Alcohol intake: never Patient Tobacco Use Status: Never used Tobacco Advance Directives: No Advance Directives Information Provided: Yes Nutrition Risks: No Nutritional Risk Gender identity: Female Meds Allergies Allergy/AdvReac Type Severity Reaction Status Date / Time oxycodone AdvReac Nausea and Verified 04/12/24 14:32 Vomiting Active Medications: Current Medications Lactated Ringer's (Lr) 1,000 mls @ 50 mls/hr IVCONT .Q20H CORNELIUS Last Admin: 04/12/24 14:45 Dose: 50 mls/hr Home Medications ?Medication ?Instructions ?Recorded ?Confirmed ?Last Taken ?Type lisinopril 10 mg tablet 10 mg PO DAILY 05/22/22 04/12/24 04/11/24 History Exam Height,Weight and Vital Signs: Height 5 ft 1 in Weight 91.3 kg Last Vital Signs Temp 98.5 F 04/12/24 14:19 Pulse 86 04/12/24 14:19 Resp 18 04/12/24 14:19 BP 156/62 H 04/12/24 14:19 Pulse Ox 97 04/12/24 14:19 O2 Del Method Room Air 04/12/24 14:19 Airway Mallampati Class: II TM Dist: >3cm Neck ROM: Full Loose/Missing/Broken Teeth: No Heart: RRR Lungs: CTA Assessment and Plan Assessment Anesthesia Assessment: Anesthesia Plan Discussed and Chart Reviewed Final Anesthetic Review Family History of Problems with Anesthesia: No History of Problems with Anesthesia: No NPO: Yes ASA Class: II Final Preanesthetic Review: No Changes in Pt Med Stat, Meds/Allgs Chart Reviewed, Consent Obtained/Reviewed and Anes Risks/Benef Reviewed Patient Risk: Intermediate Procedure Risk: Low Anesthetic Plan Anesthetic Plan: MAC: Disposition: Standard PACU
--- NOTE | 2024-04-12 18:46 | HO.OPN-COLON ---
Colonoscopy Operative Note Operative Note Date of Service: 04/12/24 Narrative: COLONOSCOPY TILL CECUM WITH BIOPSIES, SNARE POLYPECTOMY, SUBMUCOSAL INJECTION AND HEMOCLIP PLACEMENT Pre-op diagnosis: Colon cancer screening, history of diverticulitis (first colon). Post-op diagnosis:? Colon polyps, Diverticulosis, hemorrhoids Endoscopist:? Rochelle Moreno MD Anesthesia:?MAC Consent: Indications for the procedure and potential complications of bleeding, perforation, reaction to medications and missed diagnosis were discussed with the patient and informed consent was obtained. Instrument: Olympus PCF H 190 L variable stiffness pediatric colonoscope Monitoring: Vital signs and clinical assessment, intermittent blood pressure monitoring, continuous EKG monitoring, Pulse oximetry and Carbon Dioxide monitoring were done throughout the procedure. Please see anesthesia flowsheet. Colon withdrawl time was 30 minutes. Procedure: The patient was placed in the left lateral decubitis position and pre-procedure medications were administered. After a digital rectal examination of the ano-rectum, the video colonoscope was inserted into the rectum and advanced through the colon to the cecum. The colonoscope was slowly withdrawn in a retrograde panoramic fashion and the colon mucosa was carefully examined including a retroflexed view of the rectum. Findings and interventions are described below. Procedure Difficulty: without difficulty Findings: Terminal Ileum: Not evaluated Cecum: Normal Ascending Colon: A 12 - 15 mm sessile polyp in the mid AC - removed with a hot snare. A 12-15 mm flat polyp in the distal AC at 75 cms. Polyp was raised with 3 cc of Eleview and removed with a hot snare. Polypectomy site was closed with 1 hemoclip Transverse Colon: Normal Descending Colon: Moderate diverticulosis Sigmoid Colon: Severe diverticulosis with luminal narrowing Rectum: A 12 to 15 mm flat polyp in the distal rectum (just inside the anal verge) on retroflexed exam. Polyp was raised with 3 cc of Eleview and removed with a hot snare. Residual polyp was removed with a cold biopsy. Ano-rectum: Small internal hemorrhoids Colon preparation: Excellent, after some irrigation. [place] Bowel Preparation Scale Right colon; 3 Transverse colon: 3 Left colon; 3 (0 = Unprepared colon segment with mucosa not seen due to solid stool that cannot be cleared. 1 = Portion of mucosa of the colon segment seen, but other areas of the colon segment not well seen due to staining, residual stool and/or opaque liquid. 2 = Minor amount of residual staining, small fragments of stool and/or opaque liquid, but mucosa of colon segment seen well. 3 = Entire mucosa of colon segment seen well with no residual staining, small fragments of stool or opaque liquid) Impression and Post Procedure Diagnosis: Colonoscopy Findings: Three medium sized polyps were removed Moderate to severe diverticulosis seen in the left colon small hemorrhoids on retroflexed exam. Plan: Pt has a FU appointment on 07/12/24 with ALBA Foley. Repeat Colonoscopy in 3 years if polyps are adenomatous and 5 years if polyps are hyperplastic (due to family hx of colon cancer (Pt's nephew who at age 38 yrs with colon cancer). Above findings were reviewed with the patient and relevant handouts were given and the discharge area. BIOPSIES SHOWED: A. Colon, ascending, polypectomy: Fragments of tubular adenoma; negative for high-grade dysplasia or carcinoma. B. Colon, ascending at 75 cm, polypectomy: Sessile serrated lesion/polyp; negative for cytologic dysplasia. C. Rectum, polypectomy: - Fragments of tubular adenoma; negative for high-grade dysplasia or carcinoma. - Fragments of squamous epithelium with koilocytic atypia (low-grade squamous intraepithelial lesion; AIN 1).
[2024-04-12 18:50] VITALS: BP 118/71; PULSE 66; RESP 16; TEMP 36.1; O2SAT 97
[2024-04-12 19:05] VITALS: BP 132/72; PULSE 58; RESP 16; O2SAT 99
[2024-04-12 19:20] VITALS: BP 137/83; PULSE 73; RESP 16; TEMP 36.6; O2SAT 99
== END 2024-04-12 19:35 | disposition home or self-care (01) ==
PROVIDERS: PCP Internal Medicine; Visit Provider Internal Medicine Gastroenterology
PROC: 0DJD8ZZ Inspection of Lower Intestinal Tract, Via Natural or Artificial Opening Endoscopic (ICD-10-PCS; CPT 45378; principal; 2024-04-12 15:20)
DX: Z12.11 Encounter for screening for malignant neoplasm of colon (principal); Z87.19 Personal history of other diseases of the digestive system; D12.2 Benign neoplasm of ascending colon; D12.8 Benign neoplasm of rectum; K62.82 Dysplasia of anus; K57.30 Diverticulosis of large intestine without perforation or abscess without bleeding; K64.8 Other hemorrhoids; K59.00 Constipation, unspecified; Z87.42 Personal history of other diseases of the female genital tract; I10 Essential (primary) hypertension; Z79.899 Other long term (current) drug therapy; Z88.5 Allergy status to narcotic agent; Z98.51 Tubal ligation status
CPT/HCPCS: 45385; 45380; 45381; 88305; J2704

== ENCOUNTER 2024-05-07 14:44 | Outpatient (REF) | payer BC, SELFPAY ==
--- NOTE | ~2024-05-07 | MM_ITS ---
EXAMINATION: MM SCREENING DIGITAL BREAST TOMOSYNTHESIS, BILATERAL CLINICAL INFORMATION: Screening. Asymptomatic. COMPARISON: Mammography: Comparison is made with available priors TECHNIQUE: Digital breast mammography with tomosynthesis is performed in both the craniocaudal and mediolateral oblique views along with computer-aided detection (CAD). FINDINGS: There are scattered areas of fibroglandular density (ACR BI-RADS breast composition Category b). There are no significant masses, abnormal calcifications, or other abnormalities. MM/MM tomosynthesis screening BI IMPRESSION: No mammographic evidence of malignancy. ASSESSMENT: BI-RADS BI-RADS 1 - Negative RECOMMENDATION: Routine annual mammography screening. 1 year F/U This examination should not preclude the clinical evaluation of a suspicious palpable abnormality. This patient's information was entered into a reminder system with a target due date for their next mammogram. Electronically signed by: Lilly Adame DO 05/20/2024 08:36 AM EDT
== END 2024-05-07 14:45 | disposition home or self-care (01) ==
LOC: HO.MAMMO 14:44
PROVIDERS: PCP Internal Medicine; Visit Provider Internal Medicine
DX: Z12.31 Encounter for screening mammogram for malignant neoplasm of breast (principal)
CPT/HCPCS: 77063; 77067

== ENCOUNTER → 2024-05-07 15:00 | Outpatient (BNV) | payer BC, SELFPAY | PROVIDERS: PCP Internal Medicine; Visit Provider Internal Medicine | DX: Z12.31 Encounter for screening mammogram for malignant neoplasm of breast (principal) | CPT/HCPCS: 77063; 77067 ==

== ENCOUNTER → 2024-05-10 11:53 | Outpatient (BNVA) | payer OTHER, SELFPAY | PROVIDERS: PCP Internal Medicine; Visit Provider Physician Assistant Medical | DX: S40.872A Other superficial bite of left upper arm, initial encounter (principal); W50.3XXA Accidental bite by another person, initial encounter; F43.9 Reaction to severe stress, unspecified | CPT/HCPCS: 99202 ==

== ENCOUNTER 2024-07-29 15:33 | Emergency (ER) | payer BC, SELFPAY ==
--- NOTE | ~2024-07-29 | US_ITS ---
EXAMINATION: NONINVASIVE ASSESSMENT OF THE ARTERIES OF THE RIGHT UPPER EXTREMITY INTERPRETING VASCULAR & INTERVENTIONAL RADIOLOGIST: Rodger Meehan MD CLINICAL INFORMATION: Right index finger discoloration TECHNIQUE: .Velocity measurements and color flow Doppler imaging was performed in the subclavian arteries, axillary arteries and brachial arteries as well as radial and ulnar arteries. The study was performed at rest COMPARISON: CT angiogram chest 12/29/2022 FINDINGS: Minimal plaque is seen in multiphasic flow is noted throughout the right upper extremity. Peak systolic velocity in centimeters per second are as follows: Subclavian proximal: 172 Subclavian mid: 110 Subclavian distal: 116 Axillary artery: 98 Brachial proximal 88 Brachial mid: 58 Brachial distal: 72 Radial mid: 50 Ulnar mid: 41 US/US arterial duplex UE RT IMPRESSION: No evidence of a hemodynamically significant stenosis in the right upper extremity. Electronically signed by: Rodger Meehan MD 07/29/2024 08:42 PM [facility]
--- NOTE | ~2024-07-29 | XR_ITS ---
EXAMINATION: XR HAND/WRIST, RIGHT . One view. CLINICAL INFORMATION: right index finger blue COMPARISON: None available. TECHNIQUE: PA, lateral, and oblique views of the right hand and wrist. FINDINGS: There is loss of PIP and DIP joint space with mild periocular spurring DIP joint second and fifth digits. No bony erosive changes. There is minimal deformity DIP joint second digit. No acute fracture or dislocation seen. XR/XR hand wrist RT IMPRESSION: Mild degenerative changes PIP and DIP joints. No visible acute fracture or dislocation seen. Mild deformity DIP joint second digit and likely cause of pain. Electronically signed by: Jordan Michele MD 07/29/2024 07:52 PM EST RP
[2024-07-29 15:40] VITALS: BP 150/87; PULSE 75; RESP 16; TEMP 36.2; O2SAT 97; BMI 38.0
--- NOTE | 2024-07-29 15:47 | ED_ITS ---
HPI - Extremity Injury (Upper) General Chief Complaint: Extremity Injury, Upper Stated Complaint: right finger inj Time Seen by Provider: 07/29/24 16:31 Source: patient Mode of arrival: ambulatory Limitations: no limitations History of Present Illness ED Provider: Carlo Sanchez HPI narrative: 59-year-old female with pmh of HTN presents to the ED for right index finger ecchymosis without any trauma. Patient denies any pmh of afib. Patient states noticed ecchymosis aroudn 11am. Patient denies any chest pain, shortness of breath, or any discoloration or rash elsewhere in her body. Patient denies any bleeding from the ears, or any other orifice. Related Data Home Medications ?Medication ?Instructions ?Recorded ?Confirmed lisinopril 10 mg tablet 10 mg PO DAILY 05/22/22 04/12/24 Allergies Allergy/AdvReac Type Severity Reaction Status Date / Time oxycodone AdvReac Nausea and Verified 07/29/24 15:46 Vomiting Review of Systems 2 Review of Systems: righ index finger discloration without any trauma. Yes all other systems are reviewed and are negative [facility] Past Medical History Medical History (Updated 07/30/24 @ 00:01 by Bg Nieto) History of abnormal cervical Papanicolaou smear Hypertension Acute diverticulitis Surgical History (Updated 04/12/24 @ 14:32 by Marika Garcia RN) Hx of tubal ligation Hx of section Family History Family History Family/Other History of breast cancer Paternal Aunt Brain cancer Father Prostate cancer Family/Other Colon cancer Social History Social History Alcohol intake: never Patient Tobacco Use Status: Never used Tobacco Advance Directives: No Advance Directives Information Provided: Yes Gender identity: Female Physical Exam 2 Vital Signs: Vital Signs: Last Vital Signs Temp 98.1 F 07/29/24 22:25 Pulse 66 07/29/24 22:25 Resp 18 07/29/24 22:25 BP 118/68 07/29/24 22:25 Pulse Ox 98 07/29/24 22:25 O2 Del Method Room Air 07/29/24 22:25 BMI result Body Mass Index 38.0 Const: General: cooperative, healthy appearing, comfortable, no acute distress, well developed, alert, awake and Physically active O rientation/consciousness: patient oriented x3 HEENT: Head: Yes normal to inspection, Yes No palpable skull fracture present, Yes normocephalic and Yes atraumatic Throat: Yes posterior oropharynx normal, Yes tonsils normal and Yes uvula midline Eyes: General: appearance normal, both eyes and all related structures Neck: Neck: Yes normal visual inspection, Yes full ROM, Yes no lymphadenopathy, Yes no meningeal signs, Yes trachea midline, Yes supple, No anterior neck swelling and No tender Chest: Chest palpation & inspection: normal inspection of the chest and normal palpation of entire chest wall Resp: Effort & Inspection: normal respiratory effort and able to speak in complete sentences Auscultation: clear to auscultation bilaterally Cardio: Jugular venous distension: no JVD Heart sounds: S1 normal heart sound present and S2 normal heart sound present GI: Inspection: Yes normal to inspection Palpation (GI): Soft to palpation, not firm, nontender, no guarding and not rigid : General: Yes no CVA tenderness Back/Spine/Pelvis: Back: no CVA tenderness Skin: General skin exam: no rashes or lesions noted, elasticity normal and turgor normal Neuro: General: patient oriented x3, gait normal, tone normal, moves all extremities, Normal light touch and pain sensation, no meningeal signs, no focal motor deficits, CN's II-XI intact bilaterally and normal sensation to monofilament Extrem: Other: Right index finger: Small area of ecchymosis on anterior aspect of palmar DIP/PIP withtout any tenderneess. patient has complete range of motion of finger. capillary index intact. Patient has complete range motion of finger and sensation. Fingers normal temperature in comparison to rest of extremity. Rest of extremity normal. Motor/neuro/vascular exam intact. Negative for pus drainage, foul odor, bluish/black discloration, erythema, or red streaks. Right upper extremity normal temperature in comparison to the left.Right upper extremity motor, neuro, and vascular exam is intact Left upper extremity is normal and motor, neuro, and vascular exam is intact. General: Yes normal to inspection, Yes full ROM and Yes capillary refill normal Psych: Appearance: grossly normal, well kempt and not disheveled Course Course Course Narrative: This is a rapid medical exam performed by Radha De Jesus PA-C. Patient is a 59-year-old female with a history of hypertension who presents with right hand numbness since earlier today. Patient complains of discoloration of the right index finger, symptoms began earlier today. Associated transient discomfort of the entire arm. On exam, there is cyanosis over the palmar aspect of the right index finger, the hand is cooler to touch versus the left hand. Radial pulse is intact. I am concerned for arterial occlusion. We will be screening basic labs and coagulation studies, I foresee the patient requiring an angiogram. We are expediting her care, she will be going back to a room momentarily. Medical Decision Making Medical Decision Making MDM Narrative: 59 yold female presents to the ED for l right index finger ecchymosis that occurred today. Patient denies any pain. Very unlikely arterial occlusion of finger. Finger is not cold Patient denied any pain. Patient has complete sensation and capillary refill is intact. Dr. Cadet evaluated patient's finger and states she is not suspecting arterial occlusion and CT angio not indicated. States more like ecchymosis. Hand x-ray ordered. We will do upper extremity ultrasound as recommend by Dr. Cadet.. 9:06pm: Hand x-ray shows minimal deformity at DIP where patient has ecchymosis. Probably bone bruise. Arterial ultrasound negative signs of arterial occlusion. On re-evaluation of hand negative for coldness, worsening ecchymosis, discoloration, stiffness, redness, hotness, rash or numbness. motor, neuro, and vascular exam of whole extremity including fingers is intact. Patient states feeling fine and both upper extremities are normal temperature. Patient denied any numbness, stifness, tingling, or weird sensation. Both upper extremity normal temperature motor/neuro/vascular exam intact. Of upper extremities all fingers capillary refills intact with normal neurovascular motor exam. Not suspecting septic joint, arterial occlusion, DVT, cellulitis, lymphangitis or compartment syndrome. Patient explained worrisome signs and informed to return to the ED immediately. Differential Diagnosis Differential Diagnoses: The differential diagnosis associated with the presentation includes (Fracture, brown bruise, contusion) Admission/Observation Consideration of admission/observation: Escalation of care including admission/observation considered Lab Data [facility] Lab Attestation statement: I reviewed the patient's lab results. 07/29/24 16:12 07/29/24 16:12 Labs: Lab Results 07/29/24 Range/Units 16:12 WBC 5.4 (4.8-10.8) X10*3/uL RBC 4.22 (4.20-5.50) X10*6/uL Hgb 13.4 (12.0-16.0) g/dl Hct 38.8 (37.0-47.0) % MCV 91.9 (80.0-98.0) fL MCH 31.8 (27.0-33.0) pg MCHC 34.5 (31.0-35.0) g/dl RDW 12.7 (11.0-16.0) % Plt Count 287 (160-400) X10*3/uL MPV 9.7 (9.4-12.3) fL Immature Gran % (Auto) 0.2 (0.0-0.4) % Neut % (Auto) 54.4 (45-73) % Lymph % (Auto) 32.7 (20-40) % [place] % (Auto) 9.7 (2-11) % Eos % (Auto) 2.6 (0-4) % Baso % (Auto) 0.4 (0-2) % Lymph # (Auto) 1.8 (1.2-4.9) X10*3/uL [place] # (Auto) 0.5 (0.1-1.2) X10*3/uL Eos # (Auto) 0.1 (0.0-0.4) X10*3/uL Baso # (Auto) 0.0 (0.0-0.2) X10*3/uL Abs Immat Gran (auto) 0.01 (0.00-0.03) X10*3/uL Absolute Neuts (auto) 3.0 (2.0-8.3) x10*3/uL Absolute Nucleated RBC 0.000 (0.0-0.012) X10*3/uL Nucleated RBC % (auto) 0.0 (0.0-0.2) /100WBC PT 10.7 L (10.9-12.4) SEC INR 0.9 (0.9-1.1) Sodium 138 (135-145) mmol/L Potassium 4.1 (3.3-5.1) mmol/L Chloride 103 (96-108) mmol/L Carbon Dioxide 24 (22-29) mmol/L Anion Gap 15 (12-20) BUN 13 (9-16) mg/dL Creatinine 0.74 (0.5-1.4) mg/dL Estim Creat Clear Calc 86.3 Estimated GFR > 60 Random Glucose 94 (60-115) mg/dL Calcium 10.4 H D (8.4-10.2) mg/dL Magnesium 2.2 (1.6-2.6) mg/dL Total Bilirubin 0.3 (0.0-1.0) mg/dL AST 33 H (5-31) U/L ALT 28 (0-31) U/L Alkaline Phosphatase 85 (39-117) U/L Total Protein 8.7 H (6.5-8.0) g/dL Albumin 4.5 (3.5-5.0) g/dL Independent Interpretation I performed an independent interpretation of an: Plain X-Ray and Ultrasound Radiology Impression Discussion of test interpretation with radiology: I have reviewed the radiologist's reading. Independent Historian Clinical information obtained from an independent historian. History obtained from or confirmed by: Other (Patient) Discharge Plan Discharge Clinical Impression: Contusion Patient Disposition: Home, Self-Care Instructions: Bone Bruise (ED) Additional Instructions: Recommend follow-up with your primary care provider. History, physical exam, and diagnostics does not indicate arterial occlusion. X-ray shows deformity at area of ecchymosis although no fracture most likely bone bruise. Return to the ED immediately for any worsening pain, bluish black discoloration, redness, stiffness of finger extremity, numbness/tingling, coldness/hotness of extremity, red streaks, fever, chills, chest pain, shortness breath, or any other concerning symptoms. IMPRESSION: Mild degenerative changes PIP and DIP joints. No visible acute fracture or dislocation seen. Mild deformity DIP joint second digit and likely cause of pain. Electronically signed by: Jordan Michele MD 07/29/2024 07:52 PM EST Dictated By: Jordan Michele MD Signed By: <Electronically signed by Jordan Michele MD in OV> 07/29/241951 FINDINGS: Minimal plaque is seen in multiphasic flow is noted throughout the right upper extremity. Peak systolic velocity in centimeters per second are as follows: Subclavian proximal: 172 Subclavian mid: 110 Subclavian distal: 116 Axillary artery: 98 Brachial proximal 88 Brachial mid: 58 Brachial distal: 72 Radial mid: 50 Ulnar mid: 41 IMPRESSION: No evidence of a hemodynamically significant stenosis in the right upper extremity. Electronically signed by: Rodger Meehan MD 07/29/2024 08:42 PM [facility] Prescriptions: No Action lisinopril 10 mg tablet 10 mg PO DAILY Stand Alone Forms: Work/School Release Interventions: ED Discharge Assessment Last Done: 07/29/24 22:25 Discharge Date/Time: 07/29/24 22:26 Print Language: Welsh
[2024-07-29 16:19] LABS: MANUAL DIFF FLAG NO
[2024-07-29 16:20] LABS: Basophils Percent Auto 0.4 % (0-2); Eosinophils Absolute Auto 0.1 X10*3/uL (0.0-0.4); Eosinophils Percent Auto 2.6 % (0-4); Hematocrit 38.8 % (37.0-47.0); Hemoglobin 13.4 g/dl (12.0-16.0); Imm Gran Abs Auto 0.01 X10*3/uL (0.00-0.03); Imm Gran Pct Auto 0.2 % (0.0-0.4); Lymphocytes Absolute Auto 1.8 X10*3/uL (1.2-4.9); Lymphocytes Percent Auto 32.7 % (20-40); Mean Corpuscular HGB Conc 34.5 g/dl (31.0-35.0); Mean Corpuscular Hemoglobin 31.8 pg (27.0-33.0); Mean Corpuscular Volume 91.9 fL (80.0-98.0); Mean Platelet Volume 9.7 fL (9.4-12.3); Monocytes Absolute Auto 0.5 X10*3/uL (0.1-1.2); Monocytes Percent Auto 9.7 % (2-11); Neutrophils Percent Auto 54.4 % (45-73); Platelet Count 287 X10*3/uL (160-400); Red Blood Count 4.22 X10*6/uL (4.20-5.50); Red Cell Distribution Width 12.7 % (11.0-16.0); White Blood Count 5.4 X10*3/uL (4.8-10.8)
[2024-07-29 16:28] LABS: INTERNATIONAL NORM RATIO 0.9 (0.9-1.1); Prothrombin Time 10.7 SEC (10.9-12.4)
[2024-07-29 16:42] LABS: Alanine Aminotransferase 28 U/L (0-31); Albumin Level 4.5 g/dL (3.5-5.0); Alkaline Phosphatase 85 U/L (39-117); Anion Gap 15 (12-20); Aspartate Amino Transferase 33 U/L (5-31); Bilirubin Total 0.3 mg/dL (0.0-1.0); Blood Urea Nitrogen 13 mg/dL (9-16); Calcium 10.4 mg/dL (8.4-10.2); Carbon Dioxide 24 mmol/L (22-29); Chloride 103 mmol/L (96-108); Creatinine Clr Calc Pharmacy 86.3; Estimated Glomerular Filt Rate > 60; Glucose Random 94 mg/dL (60-115); Magnesium 2.2 mg/dL (1.6-2.6); Potassium 4.1 mmol/L (3.3-5.1); Sodium 138 mmol/L (135-145); Total Protein 8.7 g/dL (6.5-8.0)
[2024-07-29 18:38] VITALS: BP 123/72; PULSE 73; RESP 18; O2SAT 97
[2024-07-29 20:48] VITALS: BP 126/72; PULSE 70; RESP 18; TEMP 36.8; O2SAT 100
[2024-07-29 22:25] VITALS: BP 118/68; PULSE 66; RESP 18; TEMP 36.7; O2SAT 98
== END 2024-07-29 22:26 | disposition home or self-care (01) ==
PROVIDERS: Physician Assistant Medical; Emergency Provider Emergency Medicine; PCP Internal Medicine
DX: S60.021A Contusion of right index finger without damage to nail, initial encounter (principal); X58.XXXA Exposure to other specified factors, initial encounter; M79.601 Pain in right arm; Y93.9 Activity, unspecified; Y92.9 Unspecified place or not applicable; Y99.9 Unspecified external cause status; I10 Essential (primary) hypertension
CPT/HCPCS: 36415; 73110; 73130; 80053; 83735; 85025; 85610; 93931; 99284

== ENCOUNTER 2025-06-07 14:06 | Outpatient (REF) | payer BC, SELFPAY ==
--- OUTSIDE RECORDS SUMMARY | 2025-06-06 15:30 | XMS_ITS | Encounter Summary ---
Author Organization [facility] Address [address] [place] [address] [address] [place] [address] Care Team Providers Care Cardiac Monitor Name Role Phone Tasia Macias MD Primary Care Provider + Reason for Referral * Consultation (Routine) - Pending Review Specialty Diagnoses / Procedures Referred By Bob price Referred To Contact Physical Therapy Diagnoses Primary osteoarthritis of right knee Tasia Macias MD [address] [place] [address] Phone: tel: fax: Referral ID Status Reason Start Date Expiration Date Visits Requested Visits Authorized [id number] Pending Review Specialty Services Required 06/07/2026 1 1 Reason for Visit * Reason Comments Sick visit Encounter Details Date Type Department Care Team (Latest Contact Info) Description 06/06/2025 3:30 PM EDT Office Visit [facility] [address] [place] [id number] Tasia Macias MD [address] [place] [address] [phone] Heel pain, chronic, left (Primary Dx); Primary osteoarthritis of right knee; Plantar fasciitis of left foot Social History Tobacco Use Types Packs/Day Years Used Date Smoking Tobacco: Never Passive Smoke Exposure: Never Smokeless Tobacco: Never Tobacco Cessation:Counseling Given: Not Answered Alcohol Use Standard Drinks/Week Comments Never 0 (1 standard drink = 0.6 oz pur e alcohol) Housing Stability Answer Date Recorded What is your housing situation today? I have isauro parisi 05/07/[address] you li ve. Do you have problems with any of the following? None of the above 05/07/2024 Food Insecurity Answer Date Recorded Within the past 12 months, y ou worried that your food would run out before you got money to buy more: Never True 05/07/2024 Within the past 12 months,th e food you bought just didn't last and you didn't have enough money to get more: Never True Transportation Answer Date Recorded In the past 12 months, has l ack of transportation kept you from medical appts, meetings, work or from getting things needed for daily living? No 05/07/2024 Utilities Answer Date Recorded In the past 12 months, has t he electric, gas, oil or water company threatened to shut off services in your home? No 05/07/2024 Depression Answer Date Recorded Patient Health Questionnaire-2 Score 2 11/11/2022 Internet Access Answer Date Recorded Internet Access Q1 No 05/07/2024 Internet Access Q2 I do not want or need it 04/19 Comments No Sex and Gender Information Value Date Recorded Sex Assigned at Female 06/17/2022 10:15 AM EDT Legal Sex Female 10:15 AM EDT Gender Identity Female 06/17/2022 10:15 AM EDT Sexual Orientation Choose not to disclose 2021 10:15 AM EDT documented as of this encounter Last Filed Vital Signs Vital Sign Reading Time Taken Comments Blood Pressure 119/80 06/06/2025 3:39 PM EDT Pulse 97 06/06/2025 3:39 PM EDT Temperature 37 C (98.6 F) 06/06/2025 3:39 PM EDT Respiratory Rate 16 06/06/2025 3:39 PM EDT Oxygen Saturation 97% 06/06/2025 3:39 PM EDT Inhaled Oxygen Concentration - - Weight 93.8 kg (206 lb 12.8 oz) 06/06/2025 3:39 PM EDT Height 154.9 cm (5' 1 ) 06/06/2025 3:39 PM EDT Body Mass Index 39.07 06/06/2025 3:39 PM EDT documented in this encounter Progress Notes * Tasia Macias MD - 06/06/2025 3:30 PM EDT SUBJECTIVE: Patience Fuentes is a 60 y.o. year old female who presents for sick visit/. Denies recent illness, injury, or hospitalization. Acute Concerns: Co right knee pain and edema x 2-3w, increases mostly with standing for long periods of time. It limits ambulation of more than 2 blocks. She had a fall down the stairs 1y ago Social History Social History Narrative Not on file Problem List[1] Family History[2] Review of Systems Constitutional: Negative for chills, fatigue and fever. HENT: Negative for congestion, ear pain, nosebleeds, rhinorrhea, sinus pressure, sore throat and trouble swallowing. Eyes: Negative for pain and discharge. Respiratory: Negative for cough, chest tightness and shortness of breath. Cardiovascular: Negative for chest pain, palpitations and leg swelling. Gastrointestinal: Negative for abdominal pain, blood in stool, constipation, diarrhea and nausea. Endocrine: Negative for polydipsia and polyuria. Genitourinary: Negative for dysuria, frequency, genital sores, pelvic pain and vaginal discharge. Musculoskeletal: Positive for arthralgias. Negative for back pain and neck pain. Skin: Negative for rash. Allergic/Immunologic: Negative for environmental allergies. Neurological: Negative for dizziness, seizures, weakness, light-headedness and headaches. Hematological: Negative for adenopathy. Psychiatric/Behavioral: Negative for agitation, behavioral problems, self-injury and suicidal ideas. OBJECTIVE: Vitals: 06/06/25 1539 BP: 119/80 Pulse: 97 Resp: 16 Temp: 98.6 ??F (37 ??C) SpO2: 97% Physical Exam HENT: Right Ear: Tympanic membrane and ear canal normal. Left Ear: Tympanic membrane and ear canal normal. Mouth/Throat: Mouth: Mucous membranes are moist. Pharynx: No oropharyngeal exudate or posterior oropharyngeal erythema. Eyes: Pupils: Pupils are equal, round, and reactive to light. Cardiovascular: Rate and Rhythm: Regular rhythm. Pulses: Normal pulses. Heart sounds: Normal heart sounds. No murmur heard. Pulmonary: Breath sounds: Normal breath sounds. Abdominal: General: Bowel sounds are normal. Palpations: Abdomen is soft. Tenderness: There is no abdominal tenderness. Musculoskeletal: General: Normal range of motion. Cervical back: Neck supple. Right knee: Tenderness present over the medial joint line and MCL. Left foot: Tenderness (left heel pain) and bony tenderness (heel) present. Comments: Varicosities LE bl, no skin changes Skin: General: Skin is warm. Neurological: General: No focal deficit present. Mental Status: She is alert and oriented to person, place, and time. Psychiatric: Mood and Affect: Mood normal. Behavior: Behavior normal. Problem List Items Addressed This Visit Heel pain, chronic, left - Primary Has plantar fasciitis, use plantar pad Ro osteophyte Relevant Medications meloxicam (Mobic) 15 MG tablet Other Relevant Orders XR Foot 3+ Views Left (Completed) Primary osteoarthritis of right knee Use Meloxicam daily x 2w + Tylenol prn Refer to PT Relevant Medications meloxicam (Mobic) 15 MG tablet Other Relevant Orders XR Knee 3 Views Right (Completed) Referral to Physical Therapy Plantar fasciitis of left foot Relevant Medications meloxicam (Mobic) 15 MG tablet Follow Up: Medications Ordered Prior to Encounter[3] [1] Patient Active Problem List Diagnosis Abnormal uterine bleeding Obesity Varicose veins of lower extremity Vitamin D deficiency Postmenopausal bleeding Screening mammogram for breast cancer Visit for preventive health examination Screening for colorectal cancer Diverticulitis large intestine w/o perforation or abscess w/bleeding Primary hypertension Diverticulosis of colon Tubular adenoma of colon Adjustment disorder with mixed anxiety and depressed mood Head trauma Exercise counseling Dietary counseling Acute cough History of abnormal cervical Papanicolaou smear Encounter for screening colonoscopy Acute pain of left shoulder due to trauma Upper respiratory tract infection Anxiety Preop examination Heel pain, chronic, left Primary osteoarthritis of right knee Plantar fasciitis of left foot [2] No family history on file. [3] Current Outpatient Medications on File Prior to Visit Medication Sig Dispense Refill acetaminophen (Tylenol Extra Strength) 500 MG tablet Take 2 tablets three times daily for 5 days then prn. Do not exceed 6 tabs in 24 hrs 30 tablet 0 upoeztv-zjizbeajiyoap-dlkiawes (Excedrin Migraine) 250-250-65 MG tablet take 1 pill in case of migraine if persistent then take a second dose max 2 pills cholecalciferol (Vitamin D-3) 50 MCG (1999 UT) capsule Take 1 capsule by mouth at bed time. Diclofenac Sodium 1 % gel APPLY TOPICALLY TO THE AFFECTED AREA(S) THREE TIMES DAILY NEEDED FOR PAIN 100 g 0 ibuprofen 400 MG tablet Take 1 tablet (400 mg) by mouth every 6 (six) hours if needed for moderate pain or fever for up to 30 doses. 30 tablet 0 lisinopril 10 MG tablet TAKE 1 TABLET BY MOUTH ONCE DAILY 90 tablet 1 LORazepam (Ativan) 0.5 MG tablet For anxiety before the procedure 2 tablet 0 traZODone (Desyrel) 50 MG tablet Take 1/2 to 1 tab po q6h prn anxiety/ hold for sedation 5 tablet 0 No current facility-administered medications on file prior to visit. documented in this encounter Miscellaneous Notes * Assessment & Plan Note - Tasia Macias MD - 06/07/2025 5:10 PM EDT Associated Problem(s): Heel pain, chronic, left Has plantar fasciitis, use plantar pad Ro osteophyte * Assessment & Plan Note - Tasia Macias MD - 06/07/2025 5:08 PM EDT Associated Problem(s): Primary osteoarthritis of right knee Use Meloxicam daily x 2w + Tylenol prn Refer to PT documented in this encounter Plan of Treatment Scheduled Referrals Name Type Priority Associated Diagnoses Orde r Schedule Referral to Physical Therapy Outpatient Referral Routine Primary osteoarthritis of right knee Expected: 06/07/2025 (Approximate), Expires: 06/07/2026 documented as of this encounter Procedures Procedure Name Priority Date/Time Associated Diagnosis Comments XR FOOT 3+ VIEWS LEFT Routine 06/07/2025 3:00 PM EDT Heel pain, chronic, left XR KNEE 3 VIEWS RIGHT Routine 06/07/2025 2:53 PM EDT Primary osteoarthritis of right knee documented in this encounter Results * XR Foot 3+ Views Left (06/07/2025 3:00 PM EDT) Anatomical Region Laterality Modality Lower Extremities, Foot Left [facility] 06/07/2025 3:00 PM EDT Narrative 06/07/2025 3:17 PM EDT [address] XRay Report Signed Patient: Patience Fuentes MR#: [id number] 7 : 1965 Acct:[id number] Age/Sex: 60 / F ADM Date: 06/07/25 Loc: MAE Attending Dr: Tasia Macias MD Ordering Physician: Tasia Macias MD Date of Service: 06/07/25 Procedure(s): XR foot LT min 3V Accession Number(s): [id number] cc: Tasia Macias MD Reason for Exam: left heel pain EXAMINATION: XR FOOT, LEFT CLINICAL INFORMATION: left heel pain COMPARISON: None available. TECHNIQUE: AP, lateral, and oblique views of the left foot. FINDINGS: Bone alignment is normal. No fracture or dislocation. Normal joint spaces. Plantar calcaneal spur. Soft tissues otherwise normal. XR/XR foot LT min 3V IMPRESSION: Plantar calcaneal spur. Electronically signed by: Amy Minaya MD 06/07/2025 03:14 PM EDT Dictated By: Amy Minaya MD Signed By: <Electronically signed by Amy Minaya MD in OV> 06/07/25 1514 DD/ 1500 TD/TT: 06/07/25 1507 [place] Compounder: RANGEL Procedure Note Donotuseinterpreter, Image - 06/07/[address] [address] XRay Report Signed Patient: Patience FuentesMR#: [id number] 7 : 1965Acct:[id number] Age/Sex: 60 / FADM Date: 06/07/25 Loc: RIAX Attending Dr: Tasia Macias MD Ordering Physician: Tasia Macias MD Date of Service: 06/07/25 Procedure(s): XR foot LT min 3V Accession Number(s): [id number] cc: Tasia Macias MD Reason for Exam: left heel pain EXAMINATION: XR FOOT, LEFT CLINICAL INFORMATION: left heel pain COMPARISON: None available. TECHNIQUE: AP, lateral, and oblique views of the left foot. FINDINGS: Bone alignment is normal. No fracture or dislocation. Normal joint spaces. Plantar calcaneal spur. Soft tissues otherwise normal. XR/XR foot LT min 3V IMPRESSION: Plantar calcaneal spur. Electronically signed by: Amy Minaya MD 06/07/2025 03:14 PM EDT RP Dictated By: Amy Minaya MD Signed By: <Electronically signed by Amy Minaya MD in OV> 06/07/25 1514 DD/ 1500 TD/TT: 06/07/25 1507 [place] Compounder: RANGEL Tasia Macias MD IMG XR PROCEDURES Final Result * XR Knee 3 Views Right (06/07/2025 2:53 PM EDT) Anatomical Region Laterality Modality Lower Extremities, Knee Right [facility] 06/07/2025 2:53 PM EDT Narrative 06/07/2025 3:18 [place] [address] XRay Report Signed Patient: Patience Fuentes MR#: [id number] 7 : 1965 Acct:[id number] Age/Sex: 60 / F ADM Date: 06/07/25 Loc: HO.HHCX Attending Dr: Tasia Macias MD Ordering Physician: Tasia Macias MD Date of Service: 06/07/25 Procedure(s): XR knee RT 3V Accession Number(s): [id number] cc: Tasia Macias MD Reason for Exam: knee osteoarthritis EXAMINATION: XR KNEE, RIGHT CLINICAL INFORMATION: knee osteoarthritis COMPARISON: None available. TECHNIQUE: 3 views of the right knee. FINDINGS: Bone alignment is normal. No fracture or dislocation. Normal joint spaces. No joint effusion. XR/XR knee RT 3V IMPRESSION: Normal right knee. Electronically signed by: Amy Minaya MD 06/07/2025 03:15 PM EDT RP Dictated By: Amy Minaya MD Signed By: <Electronically signed by Amy Minaya MD in OV> 06/07/25 1515 DD/ 1453 TD/TT: 06/07/25 1507 [place] Compounder: RANGEL Procedure Note Donotuseinterpreter, Image - 06/07/[address] [address] XRay Report Signed Patient: Patience FuentesMR#: [id number] 7 : 1965Acct:[id number] Age/Sex: 60 / FADM Date: 06/07/25 Loc: .HHCX Attending Dr: Tasia Macias MD Ordering Physician: Tasia Macias MD Date of Service: 06/07/25 Procedure(s): XR knee RT 3V Accession Number(s): [id number] cc: Tasia Macias MD Reason for Exam: knee osteoarthritis EXAMINATION: XR KNEE, RIGHT CLINICAL INFORMATION: knee osteoarthritis COMPARISON: None available. TECHNIQUE: 3 views of the right knee. FINDINGS: Bone alignment is normal. No fracture or dislocation. Normal joint spaces. No joint effusion. XR/XR knee RT 3V IMPRESSION: Normal right knee. Electronically signed by: Amy Minaya MD 06/07/2025 03:15 PM EDT RP Dictated By: Amy Minaya MD Signed By: <Electronically signed by Amy Minaya MD in OV> 06/07/25 1515 DD/ 1453 TD/TT: 06/07/25 1507 [place] Compounder: RANGEL Tasia Macias MD IMG XR PROCEDURES Final Result documented in this encounter Visit Diagnoses Diagnosis Heel pain, chronic, left- Primary Primary osteoarthritis of right knee Plantar fasciitis of left foot documented in this encounter Care Teams Cardiac Monitor Relationship Specialty Start Date End Date Tasia Macias MD [address] [place] [phone] PCP - General Family Medicine 09/05/20 documented as of this encounter
--- NOTE | ~2025-06-07 | XR_ITS ---
EXAMINATION: XR KNEE, RIGHT CLINICAL INFORMATION: knee osteoarthritis COMPARISON: None available. TECHNIQUE: 3 views of the right knee. FINDINGS: Bone alignment is normal. No fracture or dislocation. Normal joint spaces. No joint effusion. XR/XR knee RT 3V IMPRESSION: Normal right knee. Electronically signed by: Amy Minaya MD 06/07/2025 03:15 PM EDT
--- NOTE | ~2025-06-07 | XR_ITS ---
EXAMINATION: XR FOOT, LEFT CLINICAL INFORMATION: left heel pain COMPARISON: None available. TECHNIQUE: AP, lateral, and oblique views of the left foot. FINDINGS: Bone alignment is normal. No fracture or dislocation. Normal joint spaces. Plantar calcaneal spur. Soft tissues otherwise normal. XR/XR foot LT min 3V IMPRESSION: Plantar calcaneal spur. Electronically signed by: Amy Minaya MD 06/07/2025 03:14 PM EDT
--- OUTSIDE RECORDS SUMMARY | 2025-06-07 18:58 | XMS_ITS | Clinical Summary ---
Author Organization [employer] Address [address] [place] [address] [address] [place] [address] Care Team Providers Care Family Law Specialist Name Role Phone Tasia Macias MD Primary Care Provider + Allergies Active Allergy Reactions Criticality Noted Date Comments Oxycodone-Acetaminophen High 09/12/2020 Other reaction(s): Vomiting Medications * This document contains information received from the source organization and may not represent a complete record from that organization. aspirin-acetamin ophen-caffeine (Excedrin Migraine) 250-250-65 MG tablet take 1 pill in case of migraine if persistent then take a second dose max 2 pills 10/08/19 20 Active cholecalciferol (Vitamin D-3) 50 MCG (1999 UT) capsule Take 1 capsule by mouth at bed time. 03/22/20 19 Active ibuprofen 400 MG tablet Take 1 tablet (400 mg) by mouth every 6 (six) hours if needed for moderate pain or fever for up to 30 doses. 30 tablet 08/06/20 23 Active traZODone (Desyrel) 50 MG tablet Take 1/2 to 1 tab po q6h prn anxiety/ hold for sedation 5 tablet 02/06/20 24 Active acetaminophen (Tylenol Extra Strength) 500 MG tablet Take 2 tablets three times daily for 5 days then prn. Do not exceed 6 tabs in 24 hrs 30 tablet 11/18/19 25 Active LORazepam (Ativan) 0.5 MG tabletIndication s:Anxiety For anxiety before the procedure 2 tablet 12/10/19 25 Active Diclofenac Sodium 1 % gel APPLY TOPICALLY TO THE AFFECTED AREA(S) THREE TIMES DAILY NEEDED FOR PAIN 100 g 01/29/20 25 Active lisinopril 10 MG tabletIndication s:Primary hypertension TAKE 1 TABLET BY MOUTH ONCE DAILY 90 tablet 1 05/18/20 25 Active meloxicam (Mobic) 15 MG tablet Take 1 tablet (15 mg) by mouth Once per day. 30 tablet 06/06/20 25 026 Active lisinopril 10 MG tabletIndication s:Primary hypertension Take 1 tablet (10 mg) by mouth Once per day. 90 tablet 1 12/10/19 25 025 Discontinued Active Problems Problem Noted Date Diagnosed Date Plantar fasciitis of left foot 06/07/2025 Heel pain, chronic, left 06/06/2025 Assessment & Plan (06/07/2025 5:10 PM EDT): Has plantar fasciitis, use plantar pad Ro osteophyte Primary osteoarthritis of right knee 06/06/2025 Assessment & Plan (06/07/2025 5:08 PM EDT): Use Meloxicam daily x 2w + Tylenol prn Refer to PT Anxiety 12/09/2024 Preop examination 12/09/2024 Assessment & Plan (12/09/2024 1:17 PM EDT): RCRI score is 0 meaning she has a 3.9% risk Patient is low risk for very low risk procedure surgery should proceed as scheduled I advise n.p.o. after midnight for the procedure I advised to take her blood pressure medication the morning of the procedure with a very small sip of water Acute cough 11/29/2024 History of abnormal cervical Papanicolaou smear 11/29/2024 Encounter for screening colonoscopy 11/29/2024 Acute pain of left shoulder due to trauma 2024 Upper respiratory tract infection 11/29/2024 Diverticulosis of colon 05/07/2024 Assessment & Plan (05/12/2024 3:32 PM EDT): Resolved Advised to avoid constipation, re consult prn abd pain, GI bleeding Tubular adenoma of colon 05/07/2024 Assessment & Plan (05/12/2024 3:32 PM EDT): Sp resection, next colonoscopy due on 2028 Adjustment disorder with mixed anxiety and depre ssed mood 05/07/2024 Assessment & Plan (05/12/2024 3:31 PM EDT): Could have been triggered by feelings of vulnerability and anxiety with current situation at work?. Pt with no SI or HI. 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 She will be evaluated by and I will follow up in 6 weeks. Head trauma 05/07/2024 Exercise counseling 05/07/2024 Dietary counseling 05/07/2024 Diverticulitis large intesti ne w/o perforation or abscess w/bleeding 01/14/2023 Assessment & Plan (01/14/2023 12:24 PM EDT): Resolved. Counseled to avoid constipation, foods that contain seeds FU with GI Primary hypertension 01/14/2023 Assessment & Plan (12/09/2024 1:16 PM EDT): I advised low-sodium diet, I renewed her prescription lisinopril 10 mg daily follow-up with PCP Assessment & Plan (01/14/2023 12:21 PM EDT): stage 1 Reminded pt to be compliant with lisinopril 10 mg Counseled re low salt diet/increase moderate physical activity. Check home BP BIW and prn CP/HAMMOND/KRAUSE Non smoking patient. 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 She has elected to FU with [facility] when she travels to [place] in 6 months. I advised her to resheduled appointment with [facility] but she declined. FU after endometrial biopsy or in 2 months. Screening mammogram for breast cancer 11/11/2022 Assessment & Plan (01/14/2023 12:23 PM EDT): patient referred to GI after episode of diverticulitis last month fu next month and refer to colonoscopy if not done pt hopes to get it done in [place] when she travels in 2 months Assessment & Plan (11/11/2022 3:50 PM EDT): Order mammogram and labs FU with me in 2 months Visit for preventive health examination 11/12/19 Assessment & Plan (05/12/2024 3:40 PM EDT): Discussed with patient re increase fresh fruit and vegetable intake. Counseled re moderate exercise as tolerated, up to 20min/d Patient feels safe at home. PAP smear: up to date next one due 2025 Mammogram: UTD, next one due on 2024 CRC screen: UTD, next one due on 2028 Lipids/FBS: UTD, next ones due on 12/2024 Vaccinations: Pt declined covid and influenza IZ today. Assessment & Plan (11/11/2022 6:00 PM EDT): Discussed with patient re increase fresh fruit and vegetable intake. Counseled re moderate exercise as tolerated, up to 20min/d Patient feels safe at home. PAP smear: up to date next one due 2025 Mammogram: TBO Eye exam: Pt declined referral to diver's tender. She will see a private Plant Biology Professor in [place] when she visits in January. CRC screen: See CRC screening Lipids/FBS: TBO Vaccinations: Pt agred to TD today, declined covid and influenza IZ today, order IZ titers and FU with me in 2 months. Screening for colorectal cancer 11/11/2022 Assessment & Plan (11/11/2022 6:01 PM EDT): Pt declined referral for colonoscopy. I gave her information about cologuard she will contact her insurance about coverage and FU with me in 2 months Abnormal uterine bleeding 11/08/2022 Varicose veins of lower extremity 11/08/2022 Vitamin D deficiency 06/26/2017 Obesity 10/05/2015 Encounters Date Type Department Care Team Description 06/06/2025 3:30 PM EDT Office Visit [facility] [address] [place] [id number] Tasia Macias MD Heel pain, chronic, left (Primary Dx); Primary osteoarthritis of right knee; Plantar fasciitis of left foot 06/06/2025 Travel 06/05/2025 Travel 06/03/[address] [address] Tasia Macias MD Chart Prep 06/02/[address] [address] Tasia Macias MD Nurse Triage 05/19/[address] [phone] Tasia Macias MD November recall 05/17/[address] [phone] Gianna Dorsey MD Primary hypertension 05/13/2025 Travel 05/12/2025 Patient Outreach [address] [address] Tasia Macias MD Pre-visit Planning ((Unable to reach for PVP screening, LVM) to be completed in office ) from Last 3 Months Immunizations Immunization Administration Dates Next Due Hep B, adult 10/14/2002,05/13/2002,04/12/2002 TD (adult), 2 Lf tetanus tox oid, preservative free, adsorbed 11/11/2022,10/28/2007 Tdap 02/28/2012 Zoster, Recombinant 08/08/2020,06/06/2020 Social History Tobacco Use Types Packs/Day Years Used Date Smoking Tobacco: Never Passive Smoke Exposure: Never Smokeless Tobacco: Never Tobacco Cessation:Counseling Given: Not Answered Alcohol Use Standard Drinks/Week Comments Never 0 (1 standard drink = 0.6 oz pur e alcohol) Housing Stability Answer Date Recorded What is your housing situation today? I have isauro sing 05/07/[address] you li [...] the past 12 months, has t he [employer], gas, oil or water company threatened to [...] not to disclose 2021 10:15 AM EDT Last Filed Vital Signs Vital Sign Reading [...] Mass Index 39.07 06/06/2025 3:39 PM EDT Plan of Treatment Health Maintenance Due Date Last Done Comments CT Colonography 1967 FIT DNA/Cologuard 1967 FIT 1967 FOBT 1967 Sigmoidoscopy 1967 Alcohol/Substance Use Screening 1979 Pneumococcal Vaccine: 50+ Years (1 of 1 - PCV) 2017 Depression Screening 11/12/2023 11/11/2022, 11/12/19 COVID-19 Vaccine (3 - season) 2025 01/04/2021, 12/14/2020 Influenza Vaccine (#1) 2025 Mammogram 05/07/2025 05/07/2024, 12/16, 12/30/2022, Additional history exists SDOH Screening 05/07/2025 05/07/2024 Disability Screening 05/13/2026 05/13/2025 Tobacco Screening 06/06/2026 06/06/2025 Colonoscopy 04/12/2027 04/12/2024 Colorectal Cancer Screening 04/12/2027 Cervical Cancer Screening 05/24/2027 HPV/Cotest 05/24/2027 05/24/2022, 10/0 12/2021, 05/22/2022, Additional history exists Pap Smear 05/24/2027 05/24/2022 Lipid Panel 01/15/2028 01/14/2023, 09/19/2020 DTaP/Tdap/Td Vaccines (3 - Td or Tdap) 11/11/2032 11/11/2022, 02/28/2012, 10/28/2007 RSV Patients and Patients Aged 60 years or older (1 - 1-dose 75+ series) 2042 Hepatitis B Vaccines Completed 10/14/2002, 05/13/2002, 04/12/2002 Zoster Vaccines Completed 08/08/2020, 06/06/2020 HIV Screening Completed 01/14/2023 Hepatitis C Screening Completed 01/14/2023 HIB Vaccines Aged Out No longer eligi ble based on patient's age to complete this topic HPV Vaccines Aged Out No longer eligi ble based on patient's age to complete this topic Hepatitis A Vaccines Aged Out No long er eligible based on patient's age to complete this topic IPV Vaccines Aged Out No longer eligi ble based on patient's age to complete this topic Meningococcal B Vaccine Aged Out No l onger eligible based on patient's age to complete this topic Meningococcal Vaccine Aged Out No bandar shukri eligible based on patient's age to complete this topic RSV under 20 months Aged Out No longe r eligible based on patient's age to complete this topic Rotavirus Vaccines Aged Out No longer eligible based on patient's age to complete this topic Procedures Procedure Name Priority Date/Time Associated Diagnosis Comments XR FOOT 3+ VIEWS LEFT Routine 06/07/2025 3:00 PM EDT Heel pain, chronic, left XR KNEE 3 VIEWS RIGHT Routine 06/07/2025 2:53 PM EDT Primary osteoarthritis of right knee BI MAMMOGRAM SCREENING TOMOSYNTHESIS BILATERAL Routine 05/07/2024 3:00 PM EDT HM COLONOSCOPY Routine 04/12/2024 HEPATITIS PANEL, GENERAL Routine 01/14/2023 10:43 AM EDT Encounter for preventive health examination HIV 1/2 ANTIGEN/ANTIBODY, FOURTH GENERATION W/RFL Routine 01/14/2023 10:43 AM EDT Encounter for preventive health examination LIPID PANEL WITH REFLEX TO DIRECT LDL Routine 01/14/2023 10:43 AM EDT Postmenopausal bleeding HM PAP/HPV Routine 05/24/2022 from Last 3 Months or Most Recently Relevant to Health Maintenance Results * XR Foot 3+ Views Left (06/07/2025 3:00 PM EDT) Anatomical Region Laterality Modality Lower Extremities, Foot Left Radiogra phic Imaging 06/07/2025 3:00 PM EDT Narrative 06/07/2025 3:17 PM EDT [address] [address] XRay Report Signed Patient: Patience Fuentes MR#: [id number] 7 : 1965 Acct:[id number] Age/Sex: 60 / F ADM Date: 06/07/25 Loc: HO.HHCX Attending Dr: Tasia Macias MD Ordering Physician: Tasia Macias MD Date of Service: 06/07/25 Procedure(s): XR foot LT min 3V Accession Number(s): [id number] cc: Tasia Macias MD Reason for Exam: [...] 06/07/25 1514 DD/ 1500 TD/TT: 06/07/25 1507 Fire Protection Specialist: RANGEL Procedure Note Donotuseinterpreter, Image - 06/07/2025 [place] [address] XRay Report Signed Patient: Krys Fuentes#: [id number] 7 : 1965Acct:[id number] Age/Sex: 60 / FADM Date: 06/07/25 Loc: HO.HHCX Attending Dr: Tasia Macias MD Ordering Physician: Tasia Macias MD Date of Service: 06/07/25 Procedure(s): XR foot LT min 3V Accession Number(s): [id number] cc: Tasia Macias MD Reason for Exam: [...] 06/07/25 1514 DD/ 1500 TD/TT: 06/07/25 1507 Fire Protection Specialist: RANGEL Tasia Macias MD IMG XR PROCEDURES Final Result * XR Knee 3 Views Right (06/07/2025 2:53 PM EDT) Anatomical Region Laterality Modality Lower Extremities, Knee Right Radiogra phic Imaging 06/07/2025 2:53 PM EDT Narrative 06/07/2025 3:18 PM EDT [address] [address] XRay Report Signed Patient: Patience Fuentes MR#: [id number] 7 : 1965 Acct:[id number] Age/Sex: 60 / F ADM Date: 06/07/25 [facility]: Tasia Macias MD Ordering Physician: Tasia Macias MD Date of Service: 06/07/25 Procedure(s): XR knee RT 3V Accession Number(s): [id number] cc: Tasia Macias MD Reason for Exam: knee osteoarthritis EXAMINATION: XR KNEE, RIGHT CLINICAL INFORMATION: knee osteoarthritis COMPARISON: None available. TECHNIQUE: 3 views of the right knee. FINDINGS: Bone alignment is normal. No fracture or dislocation. Normal joint spaces. No joint effusion. XR/XR knee RT 3V IMPRESSION: Normal right knee. Electronically signed by: Amy Minaya MD 06/07/2025 03:15 PM EDT Dictated By: Amy Minaya MD Signed By: <Electronically signed by Amy Minaya MD in OV> 06/07/25 1515 DD/ 1453 TD/TT: 06/07/25 1507 Fire Protection Specialist: RANGEL Procedure Note Donotuseinterpreter, Image - 06/07/[address] [address] XRay Report Signed Patient: Patience FuentesMR#: [id number] 7 : 1965Acct:[id number] Age/Sex: 60 / FADM Date: 06/07/25 Loc: HO.HHCX Attending Dr: Tasia Macias MD Ordering Physician: Tasia Macias MD Date of Service: 06/07/25 Procedure(s): XR knee RT 3V Accession Number(s): [id number] cc: Tasia Macias MD Reason for Exam: knee osteoarthritis EXAMINATION: XR KNEE, RIGHT CLINICAL INFORMATION: knee osteoarthritis COMPARISON: None available. TECHNIQUE: 3 views of the right knee. FINDINGS: Bone alignment is normal. No fracture or dislocation. Normal joint spaces. No joint effusion. XR/XR knee RT 3V IMPRESSION: Normal right knee. Electronically signed by: Amy Minaya MD 06/07/2025 03:15 PM EDT Dictated By: Amy Minaya MD Signed By: <Electronically signed by Amy Minaya MD in OV> 06/07/25 1515 DD/ 1453 TD/TT: 06/07/25 1507 Fire Protection Specialist: RANGEL Tasia Macias MD IMG XR PROCEDURES Final Result * BI Mammogram Screening Tomosynthesis Bilateral (05/07/2024 3:00 PM EDT) Anatomical Region Laterality Modality Breast Bilateral Mammography 05/07/2024 3:00 PM EDT Narrative 05/20/2024 8:39 AM EDT [facility] [address] [place] [address] [place] [address] Mammography Report Signed Patient: Patience Fuentes MR#: [id number] 7 : 1965 Acct:[id number] Age/Sex: 59 / F ADM Date: 05/07/24 Loc: HO.MAMMO Attending Dr: Tasia Macias MD Ordering Physician: Tasia Macias MD Results: 1Ne gative Date of Service: 05/07/24 Follow Up: 1 Year From Orig inal Mammogram Procedure(s): MM tomosynthesis screening BI Accession Number(s): [id number] cc: Tasia Macias MD EXAMINATION: MM SCREENING DIGITAL BREAST TOMOSYNTHESIS, BILATERAL CLINICAL INFORMATION: Screening. Asymptomatic. COMPARISON: Mammography: Comparison is made with available priors TECHNIQUE: Digital breast mammography with tomosynthesis is performed in both the craniocaudal and mediolateral oblique views along with computer-aided detection (CAD). FINDINGS: There are scattered areas of fibroglandular density (ACR BI-RADS breast composition Category b). There are no significant masses, abnormal calcifications, or other abnormalities. MM/MM tomosynthesis screening BI IMPRESSION: No mammographic evidence of malignancy. ASSESSMENT: BI-RADS BI-RADS 1 - Negative RECOMMENDATION: Routine annual mammography screening. 1 year F/U This examination should not preclude the clinical evaluation of a suspicious palpable abnormality. This patient's information was entered into a reminder system with a target due date for their next mammogram. Electronically signed by: Lilly Adame DO 05/20/2024 08:36 AM EDT Dictated By: Lilly Adame DO Signed By: <Electronically signed by Lilly Adame DO in OV> 05/20/24 0836 DD/ 1500 TD/TT: 05/07/24 1512 Fire Protection Specialist: Procedure Note Donotuseinterpreter, Image - 05/20/2024 [facility] [address] [place] [address] Mammography Report Signed Patient: Patience Fuentes#: [id number] 7 : 1965Acct:[id number] Age/Sex: 59 / FADM Date: 05/07/24 Loc: [facility].FELICIANOO Attending Dr: Tasia Macias MD Ordering Physician: Tasia Macias MDResults: 1Ne gative Date of Service: 05/07/24Follow Up: 1 Year From Orig inal Mammogram Procedure(s): MM tomosynthesis screening BI Accession Number(s): [id number] cc: Tasia Macias MD EXAMINATION: MM SCREENING DIGITAL BREAST TOMOSYNTHESIS, BILATERAL CLINICAL INFORMATION: Screening. Asymptomatic. COMPARISON: Mammography: Comparison is made with available priors TECHNIQUE: Digital breast mammography with tomosynthesis is performed in both the craniocaudal and mediolateral oblique views along with computer-aided detection (CAD). FINDINGS: There are scattered areas of fibroglandular density (ACR BI-RADS breast composition Category b). There are no significant masses, abnormal calcifications, or other abnormalities. MM/MM tomosynthesis screening BI IMPRESSION: No mammographic evidence of malignancy. ASSESSMENT: BI-RADS BI-RADS 1 - Negative RECOMMENDATION: Routine annual mammography screening. 1 year F/U This examination should not preclude the clinical evaluation of a suspicious palpable abnormality. This patient's information was entered into a reminder system with a target due date for their next mammogram. Electronically signed by: Lilly Adame DO 05/20/2024 08:36 AM EDT Dictated By: Lilly Adame DO Signed By: <Electronically signed by Lilly Adame DO in OV> 05/20/24 0836 DD/ 1500 TD/TT: 05/07/24 1512 Fire Protection Specialist: Tasia Macias MD IM BI PROCEDURES Edited Result - Final * (ABNORMAL) Colonoscopy (04/12/2024) Colonoscopy Abnormal(A ) Normal Comment:TA Tasia Macias MD [facility] Final Result * (ABNORMAL) Lipid Panel with Reflex to Direct LDL (01/14/2023 10:43 AM EDT) Cholesterol, Total 216(H) <200 mg/dL [facility] [place] [employer] HDL Cholesterol 64 > OR = 50 mg/dL [facility] [place] [employer] Triglycerides 129 <150 mg/dL [facility] [place] [employer] LDL Cholesterol 128(H) mg/dL (calc) [facility] [place] [employer] Comment: Reference range: <100 Desirable range <100 mg/dL for primary prevention; <70 mg/dL for patients with CHD or diabetic patients with > or = 2 CHD risk factors. LDL-C is now calculated using the Jacqueline calculation, which is a validated novel method providing better accuracy than the Friedewald equation in the estimation of LDL-C. Jovi CHOE et al. LATANYA. 2013;310(19): 8761-9104 (http://StackSafe/faq/TPY024) Chol/HDLC Ratio 3.4 <5.0 (calc) [employer] [place] [employer] Non-HDL Cholesterol 152(H) <130 mg/dL (calc) [employer] [place] [employer] Comment: For patients with diabetes plus 1 major ASCVD risk factor, treating to a non-HDL-C goal of <100 mg/dL (LDL-C of <70 mg/dL) is considered a therapeutic option. 01/14/2023 10:4 3 AM EDT 01/14/2023 10:43 AM EDT Narrative [facility] - 01/15/2023 10:10 AM EDT FASTING:YES FASTING: YES Tasia Macias MD LAB BLOOD ORDERABLES Fin al Result [facility] [place] [address], [place] [address] [employer] [place] [employer] [address] [place] [address] * (ABNORMAL) Hepatitis Panel, General (01/14/2023 10:43 AM EDT) Hepatitis A Antibody Total REACTIVE( A) NON-REACT [facility] [place] [employer] Comment: For additional information, please refer to http://education.Huupy/faq/YHT023 (This link is being provided for informational/ educational purposes only.) Hepatitis B Surface Antibody QL REACTIVE( A) NON-REACT [facility] [place] [employer] Hepatitis B Surface Ag NON-REACT [facility] NON-REACT [facility] [place] [employer] Hepatitis B Core Antibody Total NON-REACT [facility] NON-REACT [facility] [place] [employer] Hepatitis C Antibody NON-REACT PORTER NON-REACT [facility] [place] [facility] Index 0.06 <1.00 [employer] [place] [employer] Comment: HCV antibody was non-reactive. There is no laboratory evidence of HCV infection. In most cases, no further action is required. However, if recent HCV exposure is suspected, a test for HCV RNA (test code 85310) is suggested. For additional information please refer to http://Whimseybox.Huupy/faq/THQ60k3 (This link is being provided for informational/ educational purposes only.) 01/14/2023 10:4 3 AM EDT 01/14/2023 10:43 AM EDT Narrative [facility] - 01/15/2023 10:10 AM EDT FASTING:YES FASTING: YES Tasia Macias MD LAB BLOOD ORDERABLES Fin al Result [facility] [address], [place] [address] [employer] [place] [employer] [address] [place] [address] * HIV-1/2 Antigen and Antibodies, Fourth Generation, with Reflexes (01/14/2023 10:43 AM EDT) HIV Antigen/Antibody, 4th Generation NON-REAC TIVE NON-REAC TIVE [employer] [place] [employer] Comment: HIV-1 antigen and HIV-1/HIV-2 antibodies were not detected. There is no laboratory evidence of HIV infection. PLEASE NOTE: This information has been disclosed to you from records whose confidentiality may be protected by state law. If your state requires such protection, then the state law prohibits you from making any further disclosure of the information without the specific written consent of the person to whom it pertains, or as otherwise permitted by law. A general authorization for the release of medical or other information is NOT sufficient for this purpose. For additional information please refer to http://Whimseybox.righTune.EarDish/faq/ZMA128 (This link is being provided for informational/ educational purposes only.) The performance of this assay has not been clinically validated in patients less than 2 years old. Blood Venous blood specimen / Unknown 01/14/2023 10:43 AM EDT 01/14/2023 10:43 AM EDT Narrative [facility] - 01/15/2023 10:10 AM EDT FASTING:YES FASTING: YES us Tasia Macias MD LAB BLOOD ORDERABLES Fin al Result [facility] [address], [place] [address] [facility] [address] [place] [address] * HM PAP/HPV (05/24/2022) Pap Smear 1. NILM 1. NILM HPV Not Detected Undetected, Indeterminat e, Quantitative , Not Detected us Marilyn Carranza HEALTH MAINTENANCE Final Result from Last 3 Months or Most Recently Relevant to Health Maintenance Insurance [facility] HMO Care Teams Family Law Specialist Relationship Specialty Start Date End Date Tasia Macias MD [address] [place] [address] [place] [address] PCP - General Family Medicine 09/05/20
--- OUTSIDE RECORDS SUMMARY | 2025-06-07 18:59 | XMS_ITS | Encounter Summary ---
Author Organization [employer] Address [address] [facility] 7 [place] [address] Care Team Providers Care Communications Project Manager Name Role Phone Tasia Macias MD Primary Care Provider + Reason for Visit * Reason Onset Date Comments Chart Prep 06/03/2025 Encounter Details Date Type Department Care Team ([facility] st Contact Info) Description 06/03/2025 Telephone [facility] MEDICINE [address] [place], [place] [phone] Tasia Macias MD [address] [place] [address] Chart Prep Social History Tobacco Use Types Packs/Day Years Used Date Smoking Tobacco: Never Passive Smoke Exposure: Never Smokeless Tobacco: Never Alcohol Use Standard Drinks/Week Comments Never 0 [...] the past 12 months, has t he [employer], gas, oil or water company threatened to [...] AM EDT documented as of this encounter Miscellaneous Notes * Telephone Encounter - Cassidy Thurman MA - 06/03/2025 3:34 PM EDT Chart Prep Labs: done Images: done Referrals: not applicable Vaccines due: Covid, Flu, and PCV20 Screenings: mammogram Overdue care gaps: SBIRT, SDOH, PHQ-9, TERRENCE-7, and Oral health screening documented in this encounter Plan of Treatment Not on file documented as of this encounter Visit Diagnoses Not on filedocumented in this encounter Care Teams Communications Project Manager Relationship Specialty Start Date End Date Tasia Macias MD [address] [place] [id number] PCP - General Family Medicine 09/05/20 documented as of this encounter
--- OUTSIDE RECORDS SUMMARY | 2025-06-07 18:59 | XMS_ITS | Encounter Summary ---
Author Organization [email or web address] Address [address] [facility] 7t [place] [address] Care Team Providers Care Compensation Administrator Name Role Phone Tasia Macias MD Primary Care Provider + Reason for Visit * Reason Comments Med Refill Encounter Details Date Type Department Care Team ([facility] st Contact Info) Description 02/03/2024 Refill [facility] MEDICINE [address] [place] [address] Tasia Macias MD [address] [place] [address] Primary hypertension Social History Tobacco Use Types Packs/Day Years Used Date Smoking Tobacco: Never Passive Smoke Exposure: Never Smokeless Tobacco: Never Alcohol Use Standard Drinks/Week Comments Never 0 (1 standard drink = 0.6 oz pur e alcohol) Housing Stability Answer Date Recorded What is your housing situation today? I have isauro parisi 06/02/[address] you li ve. Do you have problems with any of the following? None of the above 06/02/2023 Food Insecurity Answer Date Recorded Within the past 12 months, y ou worried that your food would run out before you got money to buy more: Never True 06/02/2023 Within the past 12 months,th e food you bought just didn't last and you didn't have enough money to get more: Never True Transportation Answer Date Recorded In the past 12 months, has l ack of transportation kept you from medical appts, meetings, work or from getting things needed for daily living? Yes, it has kept me from medical appointments or getting medications. 05/25/2023 Utilities Answer Date Recorded In the past 12 months, has t he electric, gas, oil or water company threatened to shut off services in your home? No 06/02/2023 Depression Answer Date Recorded Patient Health Questionnaire-2 Score 2 11/11/2022 Comments Unknown Sex and Gender Information Value Date Recorded Sex Assigned at Female 06/17/2022 10:15 AM EDT Legal Sex Female 10:15 AM EDT Gender Identity Female 06/17/2022 10:15 AM EDT Sexual Orientation Choose not to disclose 2021 10:15 AM EDT documented as of this encounter Plan of Treatment Not on file documented as of this encounter Visit Diagnoses Diagnosis Primary hypertension Unspecified essential hypertension documented in this encounter Care Teams Compensation Administrator Relationship Specialty Start Date End Date Tasia Macias MD [address] [place] [id number] PCP - General Family Medicine 09/05/20 documented as of this encounter
--- OUTSIDE RECORDS SUMMARY | 2025-06-07 18:59 | XMS_ITS | Encounter Summary ---
Author Organization [employer] Address [address] [facility] 7t [place] [address] Care Team Providers Care Respiratory Care Assistant Name Role Phone Tasia Macias MD Primary Care Provider + Encounter Details Date Type Department Care Team (Latest Contact Info) Description 06/06/2025 Travel Social History Tobacco Use Types Packs/Day Years Used Date Smoking Tobacco: Never Passive Smoke Exposure: Never Smokeless Tobacco: Never Alcohol Use Standard Drinks/Week Comments Never 0 (1 standard drink = 0.6 oz pur e alcohol) Housing Stability Answer Date Recorded What is your housing situation today? I have isauroelisa parisi 05/07/[address] you [...] on filedocumented in this encounter Care Teams Respiratory Care Assistant Relationship Specialty Start Date End Date Tasia Macias MD [address] [place] [id number] PCP - General Family Medicine 09/05/20 documented as of this encounter
--- OUTSIDE RECORDS SUMMARY | 2025-06-07 18:59 | XMS_ITS | Encounter Summary ---
Author Organization [employer] Address [address] [facility] 7t [place] [address] Care Team Providers Care Major Gifts Director Name Role Phone Tasia Macias MD Primary Care Provider + Encounter Details Date Type Department Care Team (Latest Contact Info) Description 06/05/2025 Travel Social History Tobacco Use Types Packs/Day [...] on filedocumented in this encounter Care Teams Major Gifts Director Relationship Specialty Start Date End Date Tasia Macias MD [address] [place] [id number] PCP - General Family Medicine 09/05/20 documented as of this encounter
--- OUTSIDE RECORDS SUMMARY | 2025-06-07 18:59 | XMS_ITS | Encounter Summary ---
Author Organization [employer] Address [address] [facility] 7 [place] [address] Care Team Providers Care Book Sorter Name Role Phone Tasia Macias MD Primary Care Provider + Reason for Visit * Reason Onset Date Comments Nurse Triage 06/02/2025 Encounter Details Date Type Department Care Team ([facility] st Contact Info) Description 06/02/2025 Telephone [facility] MEDICINE [address] [place], [place] [phone] Tasia Macias MD [address] [place] [address] Nurse Triage Social History Tobacco Use Types Packs/Day Years [...] the past 12 months, has t he [employer], gas, oil or water company threatened to [...] encounter Miscellaneous Notes * Telephone Encounter - Nayeli Fountain RN - 06/02/2025 2:20 PM EDT 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 Pt states that she fell 9 months ago on her right knee but it improved after 1 week. Today she reports worsening right knee pain x2 weeks, intermittent in intensity, confirms she can walk/bend knee but it with walking it is 8/10 pain, at rest the pain is minimal. Currently taking advil to moderate effect. denies redness, confirms minimal swelling. She thinks this was caused by standing for a long time at [employer] recently. Advised pt to come to [place] tomorrow or see provider, pt declines and prefers to see PCP Dr Macias, scheduled for 06/06/25 with PCP. Gave home care measures: rest, try applying heat intermittently, elevate leg. advised her tocome to [place]/callback for redness, increased swelling, severe 10/10 pain,unable to walk. Pt verbalized understanding, no further questions. Protocol Used: Knee Pain (Adult) Protocol-Based Disposition: See in Office or Video Visit within 3 Days Positive Triage Questions: * Moderate pain (e.g., symptoms interfere with work or school, limping) and present > 3 days * Mild knee pain lasts > 7 days * All higher-acuity triage questions were negative Care Advice Discussed: * Pain Medicines * Using Heat for Pain * Reasons To Call Back - Severe pain lasts more than 2 hours after pain medicine - Signs of infection occur (spreading redness, warmth, fever) - You become worse * Telephone Encounter - Keyla Dickinson - 06/02/2025 1:42 PM EDT Tc from pt retuning call * Telephone Encounter - Nicole Garcia RN - 06/02/2025 1:05 PM EDT TC placed to patient [phone] in regards to below message however no answer, RN left VM requesting CB to red team nurses. TC placed to spouse [phone] however also no answer, RN left VM requesting CB to red team nurses. Patient to f/u PRN. * Telephone Encounter - Keyla Dickinson - 06/02/2025 12:57 PM EDT Symptom: Knee Pain - Not From Injury Outcome: Schedule an urgent appointment (within 1 hour) or talk to a nurse or provider soon Reason: Trouble walking The caller accepted this outcome. 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
== END 2025-06-07 14:07 | disposition home or self-care (01) ==
LOC: HO.HHCX 14:06
PROVIDERS: PCP Internal Medicine; Visit Provider Internal Medicine
DX: M79.672 Pain in left foot (principal); G89.29 Other chronic pain; M17.11 Unilateral primary osteoarthritis, right knee
CPT/HCPCS: 73562; 73630

== ENCOUNTER → 2025-06-07 14:30 | Outpatient (BNV) | payer BC, SELFPAY | PROVIDERS: PCP Internal Medicine; Visit Provider Radiology Diagnostic Radiology | DX: M17.11 Unilateral primary osteoarthritis, right knee (principal); M77.32 Calcaneal spur, left foot | CPT/HCPCS: 73562; 73630 ==